=== PATIENT | female | born 1975 | race Caucasian/White ===

== ENCOUNTER → 2016-03-25 | Outpatient (CLI) | payer BC ==
--- NOTE | 2016-03-26 10:57 | MM ---
Reason for exam: screening (asymptomatic). Last mammogram was performed 1 year and 10 months ago. History: Patient had first child at age 30. Physical Findings: A clinical breast exam by your physician is recommended on an annual basis and results should be correlated with mammographic findings. MG Screening Mammo w CAD Bilateral CC and MLO view(s) were taken. Prior study comparison: June 02, 2014, bilateral MG screening mammo w CAD. The breast tissue is heterogeneously dense. This may lower the sensitivity of mammography. No significant changes when compared with prior studies. ASSESSMENT: Negative, BI-RAD 1 RECOMMENDATION: Routine screening mammogram of both breasts in 1 year.
== END | disposition home or self-care (01) ==
LOC: RADMAMWWP 12:07
PROVIDERS: ATTEND Family Medicine
DX: Z12.31 Encounter for screening mammogram for malignant neoplasm of breast (principal)

== ENCOUNTER → 2016-03-27 | Outpatient (CLI) | payer BC ==
--- NOTE | 2016-03-27 10:27 | CT ---
EXAMINATION TYPE: CT chest wo/w con DATE OF EXAM: 03/27/2016 9:33 AM COMPARISON: NONE HISTORY: Severe Asthma, toxoplasma chorioretinitis CT DLP: 503.2 mGycm, Automated exposure control for dose reduction was used. CONTRAST: Performed injected with 0 mL of Omnipaque 300. TECHNIQUE: Axial images were obtained at 5 mm thick sections. Reconstructed images are reviewed on [employer] computer in the coronal plane. FINDINGS: Portion of the thyroid visualized is normal. No suspicious lung nodules or focal infiltrates are present. There is a punctate density within the a nterior left midlung measuring 0.3 cm. Series 4 image 17 No enlarged mediastinal or hilar adenopathy is evident. The ascending aorta diameter at the level o f the main pulmonary artery is 3.2 cm. The main pulmonary artery diameter at the bifurcation is 2.[address] sections are obtained through the upper abdomen. Abdomen is essentially unremarkable. IMPRESSIONS: 1. No acute process evident. 2. Punctate density left midlung. Confirmation of Stability over 2 years is recommended. Follow-up est CT in 6 months is recommended. Findings can be compatible with histoplasmosis.
== END | disposition home or self-care (01) ==
LOC: RADCTMAIN 08:38
PROVIDERS: ATTEND Ophthalmology
DX: J98.4 Other disorders of lung (principal); R06.02 Shortness of breath
CPT/HCPCS: 71270; Q9967

== ENCOUNTER → 2017-06-09 | Outpatient (CLI) | payer BC ==
--- NOTE | 2017-06-09 13:41 | CT ---
EXAMINATION TYPE: CT ankle RT wo con DATE OF EXAM: 06/09/2017 COMPARISON: NONE HISTORY: Right foot and ankle pain CT DLP: 292 mGycm Axial, sagittal and coronal images are submitted. 3-D image rendering performed by the technologist. FINDINGS: There is a comminuted intra-articular fracture of the posterior aspect of the distal tibia extending to the medial margin. There is involvement of the medial malleolus with a avulsion fracture. Remaining osseous structures intact. There is extensive soft tissue edema. IMPRESSION: 1. Comminuted intra-articular fracture distal tibia with avulsion fracture of the medial malleolus.
== END | disposition home or self-care (01) ==
LOC: RADCTMAIN 12:49
PROVIDERS: ATTEND Orthopaedic Surgery
DX: S82.51XA Displaced fracture of medial malleolus of right tibia, initial encounter for closed fracture (principal)

== ENCOUNTER 2017-11-24 16:54 | Inpatient (IN) | payer BC ==
[2017-11-24] MEDS ORDERED: SODIUM CHLORIDE 0.9% 1,000 ML IV STA (17:31)
[2017-11-24] MEDS ORDERED: IPRATROPIUM-ALBUTEROL 3 ML NEB INHALATION STA (17:34)
--- NOTE | 2017-11-24 17:38 | ED ---
SOB HPI - General Chief Complaint: Shortness of Breath Stated Complaint: Sob Time Seen by Provider: 11/24/17 17:23 Source: patient Mode of arrival: ambulatory Limitations: no limitations - History of Present Illness Initial Comments: 42-year-old female patient presents to the emergency department today for evaluation of shortness of breath and wheezing. Patient states she is also having chest pain with this that does radiate through to her back. Patient states that symptoms started at the beginning of November and has been getting worse. States she has been doing her breathing treatments taking her medication as directed and is not helping. Patient states she did see her primary care physician this morning and was given injections of steroids and has not helped. Patient states that her breathing is getting worse. Patient states she does have a history of asthma and histoplasmosis. Patient states she has had hot and cold flashes but denies any documented temperatures. Patient has not had any nausea or vomiting. Denies any dizziness or weakness. Patient denies any recent rash, abdominal pain, diarrhea, constipation, back pain, numbness, tingling, hematuria, dysuria, urinary urgency, urinary frequency , headache, visual changes, or any other complaints. - Related Data Allergies Allergy/AdvReac Type Severity Reaction Status Date / Time theophylline [From Rob-Dur] Allergy Unknown Verified 11/24/17 17:14 Review of Systems ROS Statement: Those systems with pertinent positive or pertinent negative responses have been documented in the HPI. ROS Other: All systems not noted in ROS Statement are negative. Past Medical History Past Medical History: Asthma Additional Past Medical History / Comment(s): histoplasmosis, pituitary adenoma , ocular histoplasmosis History of Any Multi-Drug Resistant Organisms: None Reported Past Surgical History: No Surgical Hx Reported Past Psychological History: Anxiety, Depression Smoking Status: Never smoker Past Alcohol Use History: Occasional Past Drug Use History: None Reported General Exam Limitations: no limitations General appearance: alert, in no apparent distress, other (This is a well- developed, well-nourished adult female patient in mild respiratory distress. Vital signs upon presentation are temperature 99.0F, pulse 84, respirations 28 , pressure 129/72, pulse ox 92% on room air.) Eye exam: Present: normal appearance, PERRL, EOMI. Absent: scleral icterus, conjunctival injection, periorbital swelling ENT exam: Present: normal exam, normal oropharynx, mucous membranes moist Respiratory exam: Present: respiratory distress (Mild), wheezes (Diffuse inspiratory and expiratory wheezing throughout all posterior lung tenorio.). Absent: normal lung sounds bilaterally, rales, rhonchi, stridor Cardiovascular Exam: Present: regular rate, normal rhythm, normal heart sounds. Absent: systolic murmur, diastolic murmur, rubs, gallop, clicks GI/Abdominal exam: Present: soft, normal bowel sounds. Absent: distended, tenderness, guarding, rebound, rigid Neurological exam: Present: alert, oriented X3, CN II-XII intact Psychiatric exam: Present: normal affect, normal mood Skin exam: Present: warm, dry, intact, normal color. Absent: rash Course Vital Signs 11/24/17 11/24/17 11/24/17 17:14 18:30 18:40 Temperature 99 F Pulse Rate 84 76 78 Respiratory 28 H 18 16 Rate Blood Pressure 129/72 O2 Sat by Pulse 92 L Oximetry 11/24/17 11/24/17 11/24/17 18:58 19:04 19:17 Temperature Pulse Rate 73 80 89 Respiratory 16 Rate Blood Pressure 148/74 O2 Sat by Pulse 100 Oximetry Medical Decision Making - Medical Decision Making 42-year-old female patient presented to the emergency department today for evaluation of shortness of breath and wheezing. Patient states his been going on for the last 10 days. Physical examination did reveal inspiratory and expiratory wheezing to all posterior lung tenorio. Patient is tachypneic and does appear to be in mild respiratory distress. Vital signs initially did reveal hypoxia 92% on room air. CT of the chest was performed to rule out pulmonary embolism and was negative for any acute findings. Patient did receive DuoNeb breathing treatment and then an additional albuterol treatment here in the department, patient still reports shortness of breath. Patient was seen at her primary care office this morning was given an injection of steroids and antibiotics which did not help either. Patient has been doing breathing treatments at home and has had 2 prior to coming in. Patient symptoms are consistent with status asthmaticus. Patient will be admitted for breathing treatments and IV steroids. Patient is aware of plan and agrees. - Lab Data Result diagrams: 11/24/17 17:27 11/24/17 17:27 Lab Results 11/24/17 11/24/17 11/24/17 Range/Units 17:27 17:27 17:27 WBC 9.6 (3.8-10.6) k/uL RBC 4.78 (3.80-5.40) m/uL Hgb 14.1 (11.4-16.0) gm/dL Hct 44.1 (34.0-46.0) % MCV 92.3 (80.0-100.0) fL MCH 29.6 (25.0-35.0) pg MCHC 32.0 (31.0-37.0) g/dL RDW 13.9 (11.5-15.5) % Plt Count 326 (150-450) k/uL Neutrophils % 64 % Lymphocytes % 21 % Monocytes % 5 % Eosinophils % 7 % Basophils % 1 % Neutrophils # 6.1 (1.3-7.7) k/uL Lymphocytes # 2.0 (1.0-4.8) k/uL Monocytes # 0.5 (0-1.0) k/uL Eosinophils # 0.7 (0-0.7) k/uL Basophils # 0.1 (0-0.2) k/uL PT (9.0-12.0) sec INR (<1.2) APTT (22.0-30.0) sec Sodium 141 (137-145) mmol/L Potassium 4.1 (3.5-5.1) mmol/L Chloride 107 (98-107) mmol/L Carbon Dioxide 24 (22-30) mmol/L Anion Gap 10 mmol/L BUN 12 (7-17) mg/dL Creatinine 0.48 L (0.52-1.04) mg/dL Est GFR (CKD-EPI)AfAm >90 (>60 ml/min/1.73 sqM) Est GFR (CKD-EPI)NonAf >90 (>60 ml/min/1.73 sqM) Glucose 115 H (74-99) mg/dL Plasma Lactic Acid Linus (0.7-2.0) mmol/L Calcium 9.4 (8.4-10.2) mg/dL Total Bilirubin 0.6 (0.2-1.3) mg/dL AST 21 (14-36) U/L ALT 24 (9-52) U/L Alkaline Phosphatase 91 (38-126) U/L Total Creatine Kinase 92 (30-135) U/L CK-MB (CK-2) 1.3 (0.0-2.4) ng/mL CK-MB (CK-2) Rel Index 1.4 Troponin I <0.012 (0.000-0.034) ng/mL Total Protein 7.5 (6.3-8.2) g/dL Albumin 4.4 (3.5-5.0) g/dL 11/24/17 11/24/17 Range/Units 17:27 17:27 WBC (3.8-10.6) k/uL RBC (3.80-5.40) m/uL Hgb (11.4-16.0) gm/dL Hct (34.0-46.0) % MCV (80.0-100.0) fL MCH (25.0-35.0) pg MCHC (31.0-37.0) g/dL RDW (11.5-15.5) % Plt Count (150-450) k/uL Neutrophils % % Lymphocytes % % Monocytes % % Eosinophils % % Basophils % % Neutrophils # (1.3-7.7) k/uL Lymphocytes # (1.0-4.8) k/uL Monocytes # (0-1.0) k/uL Eosinophils # (0-0.7) k/uL Basophils # (0-0.2) k/uL PT 10.3 (9.0-12.0) sec INR 1.1 (<1.2) APTT 26.5 (22.0-30.0) sec Sodium (137-145) mmol/L Potassium (3.5-5.1) mmol/L Chloride (98-107) mmol/L Carbon Dioxide (22-30) mmol/L Anion Gap mmol/L BUN (7-17) mg/dL Creatinine (0.52-1.04) mg/dL Est GFR (CKD-EPI)AfAm (>60 ml/min/1.73 sqM) Est GFR (CKD-EPI)NonAf (>60 ml/min/1.73 sqM) Glucose (74-99) mg/dL Plasma Lactic Acid Linus 1.1 (0.7-2.0) mmol/L Calcium (8.4-10.2) mg/dL Total Bilirubin (0.2-1.3) mg/dL AST (14-36) U/L ALT (9-52) U/L Alkaline Phosphatase (38-126) U/L Total Creatine Kinase (30-135) U/L CK-MB (CK-2) (0.0-2.4) ng/mL CK-MB (CK-2) Rel Index Troponin I (0.000-0.034) ng/mL Total Protein (6.3-8.2) g/dL Albumin (3.5-5.0) g/dL - EKG Data -: EKG Interpreted by Me EKG Comments: EKG obtained at 1756 shows normal sinus rhythm with a ventricular rate of 75, MO interval 114, QRS duration 86, QT 384, QTC 428. No evidence of ST elevation or depression per - Radiology Data Radiology results: report reviewed, image reviewed CT angios chest was performed. The lungs are clear of infiltrate. There is no evidence of pleural effusion or pneumothorax. There is no mediastinal adenopathy. Thoracic aorta appears intact. There is normal contrast opacification of the pulmonary arteries. There are no filling defects. There is some spurring of the thoracic spine. Impression by Dr. Mullen shows negative exam. No evidence of pulmonary embolism. Disposition Clinical Impression: Status asthmaticus Disposition: ADMITTED IP TO THIS HOSP Condition: Serious Referrals: Thee Rodarte MD [Primary Care Provider] - 1-2 days Decision to Admit Reason: Admit from EC Decision Date: 11/24/17 Decision Time: 19:55
[2017-11-24 17:47] LABS: Basophils # (A) 0.1 k/uL (0-0.2); Basophils % (A) 1 %; Eosinophils # (A) 0.7 k/uL (0-0.7); Eosinophils % (A) 7 %; HCT 44.1 % (34.0-46.0); HGB 14.1 gm/dL (11.4-16.0); Lymphocytes % (A) 21 %; MCH 29.6 pg (25.0-35.0); MCV 92.3 fL (80.0-100.0); Mean Platelet Volume 6.3; Monocytes # (A) 0.5 k/uL (0-1.0); Monocytes % (A) 5 %; Neutrophils # (A) 6.1 k/uL (1.3-7.7); Neutrophils % (A) 64 %; Platelet Count 326 k/uL (150-450); RBC 4.78 m/uL (3.80-5.40); RDW 13.9 % (11.5-15.5); WBC 9.6 k/uL (3.8-10.6)
[2017-11-24 17:51] LABS: INR 1.1 (<1.2); Partial Thromboplastin Time 26.5 sec (22.0-30.0); Prothrombin Time 10.3 sec (9.0-12.0)
[2017-11-24 17:56] LABS: ALT 24 U/L (9-52); AST 21 U/L (14-36); Albumin 4.4 g/dL (3.5-5.0); Alkaline Phosphatase 91 U/L (38-126); Anion Gap 10 mmol/L; Blood Urea Nitrogen 12 mg/dL (7-17); Calcium 9.4 mg/dL (8.4-10.2); Carbon Dioxide 24 mmol/L (22-30); Chloride 107 mmol/L (98-107); Glucose 115 mg/dL (74-99); Potassium 4.1 mmol/L (3.5-5.1); Sodium 141 mmol/L (137-145); Total Bilirubin 0.6 mg/dL (0.2-1.3); Total Protein 7.5 g/dL (6.3-8.2)
[2017-11-24 18:10] LABS: Creatine Kinase 92 U/L (30-135)
[2017-11-24 18:23] LABS: Creatine Kinase MB 1.3 ng/mL (0.0-2.4); Troponin I <0.012 ng/mL (0.000-0.034)
[2017-11-24] MEDS ORDERED: ALBUTEROL NEBULIZED (CONC) 5 MG, SODIUM CHLORIDE 0.9% NEBULIZ 3 ML INHALATION STA ×2 (18:47)
[2017-11-24] MEDS ORDERED: DEXAMETHASONE SOD PHOSPHATE 10 MG/ML 1 ML VIAL IV STA (18:48)
[2017-11-24] MEDS ORDERED: MAGNESIUM SULFATE-D5W PMX 1 GM in DEXTROSE/WATER 1 100ML.BAG IVPB ONE (18:48)
--- NOTE | 2017-11-24 19:19 | CT ---
EXAMINATION TYPE: CT angio chest DATE OF EXAM: 11/24/2017 6:28 PM COMPARISON: HISTORY: Shortness of breath. CT DLP: 508 mGycm Automated exposure control for dose reduction was used. CONTRAST: CTA scan of the thorax is performed with IV Contrast, patient injected with 72ml mL of Isovue 370, pu lmonary embolism protocol. There are 3-D post processed images.. FINDINGS: The lungs are clear of infiltrate. There is no evidence of pleural effusion or pneumothorax. There is no mediastinal adenopathy. Thoracic aorta appears intact. There is normal contrast opacification of the pulmonary arteries. There are no filling defects. There is some spurring in the thoracic spine. IMPRESSION: NEGATIVE EXAM. NO EVIDENCE OF PULMONARY EMBOLISM.
[2017-11-24] MEDS ORDERED: NALOXONE 0.4 MG/ML 1 ML VIAL IV PRN (19:47)
[2017-11-24] MEDS ORDERED: IPRATROPIUM-ALBUTEROL 3 ML NEB INHALATION PRN (19:50)
[2017-11-24] MEDS ORDERED: IPRATROPIUM-ALBUTEROL 3 ML NEB INHALATION SCH (20:00)
[2017-11-24 21:08] VITALS: BMI 29.6
[2017-11-24] MEDS ORDERED: ALBUTEROL INHALER 60 PUFF/8 GM INHALER INHALATION PRN (21:46)
[2017-11-24] MEDS ORDERED: ALBUTEROL NEBULIZED 2.5 MG/3 ML INHALATION PRN ×2 (23:28→23:29)
[2017-11-25] MEDS: methylPREDNISolone SOD SUCCI 125 MG/2 ML VIAL IV SCH ×4 (01:02→17:36)
[2017-11-25] MEDS: SODIUM CHLORIDE 0.9% 1,000 ML IV SCH ×2 (02:01→20:40)
[2017-11-25] MEDS: ALBUTEROL NEBULIZED 2.5 MG/3 ML INHALATION PRN ×3 (04:05→16:19)
[2017-11-25] MEDS: SYMBICORT 160-4.5 MCG INHALER INHALATION SCH (07:41)
[2017-11-25 09:22] LABS: Basophils % (A) 0 %; Eosinophils # (A) 0.1 k/uL (0-0.7); Eosinophils % (A) 1 %; HCT 44.4 % (34.0-46.0); Lymphocytes # (A) 0.6 k/uL (1.0-4.8); Lymphocytes % (A) 6 %; MCHC 31.5 g/dL (31.0-37.0); MCV 95.1 fL (80.0-100.0); Mean Platelet Volume 6.5; Monocytes # (A) 0.1 k/uL (0-1.0); Monocytes % (A) 1 %; Neutrophils # (A) 9.4 k/uL (1.3-7.7); Neutrophils % (A) 93 %; Platelet Count 295 k/uL (150-450); RBC 4.67 m/uL (3.80-5.40); RDW 13.9 % (11.5-15.5); WBC 10.1 k/uL (3.8-10.6)
[2017-11-25 10:10] LABS: ALT 23 U/L (9-52); AST 19 U/L (14-36); Albumin 4.4 g/dL (3.5-5.0); Alkaline Phosphatase 89 U/L (38-126); Anion Gap 11 mmol/L; Blood Urea Nitrogen 15 mg/dL (7-17); Calcium 9.3 mg/dL (8.4-10.2); Carbon Dioxide 22 mmol/L (22-30); Chloride 106 mmol/L (98-107); Glucose 190 mg/dL (74-99); Potassium 4.7 mmol/L (3.5-5.1); Sodium 139 mmol/L (137-145); Total Bilirubin 0.5 mg/dL (0.2-1.3); Total Protein 7.4 g/dL (6.3-8.2)
[2017-11-25] MEDS: CITALOPRAM HYDROBROMIDE 20 MG TAB PO SCH (13:31)
[2017-11-25] MEDS: Dextroamphetamine/Amphetamine [Adderall Xr] PO SCH (13:32)
--- NOTE | 2017-11-25 13:53 | P.CNPUL ---
History of Present Illness Consult date: 11/25/17 Reason for consult: dyspnea, cough Chief complaint: Chest tightness shortness of breath worsening for over a week History of present illness: 42-year-old female who was seen evaluated examined on third floor this patient presented into the emergency department with over a week history of increased cuff congestion and shortness of breath she has becoming more short of breath so that her nebulizer treatment as well as Symbicort was not working with those problem she was seen evaluated examined in the emergency room has been admitted into the hospital she does have cough congestion able to produce some sputum which is thick tenacious and dark yellow in color patient has a history of chronic persistent severe asthma since 3 years old however she denies any recent admission into the hospital for acute asthma exacerbation of complication of asthma. She has a multiple admission however back in , she used to see an labor relations specialist has been on shots, with a last received more than a year ago. She denies any recent intubation and or hospital admission for asthma exacerbation in last several years. 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, patient even though was born in [place] but raised in [facility], she has a multiple chickens around house along with 2 rabbits a dog Review of Systems All systems: negative Past Medical History Past Medical History: Asthma Additional Past Medical History / Comment(s): Histoplasmosis, pituitary adenoma , ocular histoplasmosis, right ankle fracture (no surgery), chronic back pain. Reports being "almost " r/t asthma in (vented and hospitalized). History of Any Multi-Drug Resistant Organisms: None Reported Past Surgical History: No Surgical Hx Reported Past Psychological History: ADD/ADHD, Anxiety, Depression Smoking Status: Never smoker Past Alcohol Use History: Occasional Additional Past Alcohol Use History / Comment(s): Social drinker. Past Drug Use History: None Reported Medications and Allergies Home Medications Medication Instructions Recorded Confirmed Type Albuterol Inhaler [Ventolin Hfa 1 - 2 puff INHALATION RT-Q6H PRN 11/24/17 History Inhaler] Budesonide/Formoterol Fumarate 2 puff INHALATION RT-DAILY 11/24/17 11/24/17 History [Symbicort 160-4.5 Mcg Inhaler] Cetirizine HCl [Zyrtec] 10 mg PO DAILY 11/24/17 11/24/17 History Citalopram Hydrobromide [CeleXA] 20 mg PO DAILY 11/24/17 11/24/17 History Dextroamphetamine/Amphetamine 20 mg PO QAM 11/24/17 11/24/17 History [Adderall Xr] Allergies Allergy/AdvReac Type Severity Reaction Status Date / Time broccoli Allergy Anaphylaxis Verified 11/24/17 21:08 legumes Allergy Unknown Verified 11/24/17 23:22 rice Allergy Anaphylaxis Verified 11/24/17 21:08 soy Allergy Anaphylaxis Verified 11/24/17 21:08 theophylline [From Rob-Dur] Allergy Unknown Verified 11/24/17 21:08 PEPPER CORN Allergy Anaphylaxis Uncoded 11/24/17 21:08 Physical Exam Vitals: Vital Signs Temp Pulse Pulse Resp BP BP Pulse Ox 11/25/17 11:29 92 11/25/17 11:18 88 11/25/17 07:00 97.7 F 71 18 141/69 98 11/25/17 04:15 84 11/25/17 04:05 92 11/24/17 23:57 88 11/24/17 23:45 88 11/24/17 23:00 98.4 F 78 18 133/59 98 11/24/17 20:25 77 16 138/75 98 11/24/17 19:17 89 11/24/17 19:04 80 11/24/17 18:58 73 16 148/74 100 11/24/17 18:40 78 16 11/24/17 18:30 76 18 11/24/17 17:14 99 F 84 28 H 129/72 92 L Intake and Output 11/24/17 11/25/17 11/25/17 22:59 06:59 14:59 Other: Voiding Method Toilet # Voids 1 1 Weight 73.482 kg - Constitutional General appearance: average body habitus, cooperative, disheveled, mild distress , no acute distress, thin - EENT Eyes: EOMI, PERRLA, normal appearance ENT: normal oropharynx Ears: bilateral: normal - Neck Neck: normal ROM Carotids: bilateral: upstroke normal, bruit absent Thyroid: bilateral: normal size - Respiratory Respiratory: bilateral: rhonchi, wheezing, prolonged expiration, negative: CTA, diminished, dullness, rales - Cardiovascular Heart sounds: normal: S1, S2 - Gastrointestinal General gastrointestinal: normal bowel sounds, soft - Neurologic Neurologic: CNII-XII intact - Musculoskeletal Musculoskeletal: gait normal, generalized weakness, strength equal bilaterally - Psychiatric Psychiatric: A&O x's 3, appropriate affect, intact judgment & insight Results - Laboratory Findings CBC and BMP: 11/25/17 09:03 11/25/17 09:03 PT/INR, D-dimer PT 10.3 sec (9.0-12.0) 11/24/17 17:27 INR 1.1 (<1.2) 11/24/17 17:27 Abnormal lab findings: Abnormal Labs 11/24/17 11/25/17 11/25/17 17:27 09:03 09:03 Neutrophils # 9.4 H Lymphocytes # 0.6 L Creatinine 0.48 L 0.48 L Glucose 115 H 190 H - Diagnostic Findings CT scan - chest: report reviewed, image reviewed (No evidence of pulmonary embolism no pneumonia or infiltrate seen, no masslike lesion identified) Assessment and Plan Assessment: Acute asthma exacerbation History of chronic persistent severe asthma History of histoplasma exposure History of intraocular histoplasmosis ADHD Mood disorder depression Plan: Continue bronchodilator in the form of albuterol via nebulizer IV steroids Oral antibiotics with doxycycline 100 mg by mouth 2 times a day Labs for ALLERGIC asthma Deep breathing exercise incentive spirometry Further evaluation of lung and outpatient basis Time with Patient: Greater than 30
[2017-11-25] MEDS: DOXYCYCLINE 50 MG CAP PO SCH (15:21)
[2017-11-25] MEDS ORDERED: ONDANSETRON 4 MG/2 ML VIAL IVP PRN (16:39)
[2017-11-25] MEDS ORDERED: MELATONIN 3 MG TABLET PO PRN (16:39)
[2017-11-25] MEDS ORDERED: CALCIUM CARBONATE 500 MG CHEWABLE PO PRN (16:39)
[2017-11-25] MEDS ORDERED: MAGNESIUM HYDROXIDE 2,400 MG/10 ML CUP PO PRN (16:39)
[2017-11-25] MEDS ORDERED: LACTULOSE 20 GM/30 ML CUP PO PRN (16:39)
[2017-11-25] MEDS: ENOXAPARIN 40 MG/0.4 ML SYRINGE SQ SCH (17:36)
--- NOTE | 2017-11-25 17:54 | HP ---
HISTORY AND PHYSICAL DATE OF ADMISSION: November 24, 2017. DATE OF SERVICE: November 25, 2017. PRESENT COMPLAINT: Short of breath. HISTORY OF PRESENTING COMPLAINT: This is a pleasant 42-year-old patient who follows with Dr. Rodarte. She was diagnosed with asthma at age of 3. The patient follows with Dr. Rodarte. Also, she was told she has histoplasmosis. She thinks was diagnosed by CT scan and also had ocular histoplasmosis. Does follow with Dr. Morales. The patient's asthma has been reasonably controlled. For 2 weeks patient has been having increasing more short of breath, wheezing, occasional bouts of phlegm and gets small specks of sputum. Does feel hot and cold and quite a bit short of breath at rest. Admitted for the same. Started on Solu-Medrol and breathing treatment with get some relief. Additionally, patient's chronic stable conditions include anxiety, depression, ADD. REVIEW OF SYSTEMS: CONSTITUTIONAL: Tired. HEENT none. RESPIRATORY as above. CARDIOVASCULAR none. GASTROINTESTINAL none. GENITOURINARY: None. MUSCULOSKELETAL: Chronic low back pain. DERMATOLOGICAL, HEMATOLOGIC, LYMPHATIC: none. PSYCHIATRY: Anxiety and depression controlled. NEUROLOGICAL none. PAST MEDICAL HISTORY: Asthma, ocular histoplasmosis, pituitary adenoma, right ankle fracture, chronic low back pain, was ventilated in . PAST SURGICAL HISTORY: None. PSYCH HISTORY: Anxiety and depression, ADD. SOCIAL HISTORY: Does not smoke. Alcohol socially. . Two children. FAMILY HISTORY: Reviewed, noncontributory to presentation. HOME MEDICATIONS: 1. Adderall XR 20 mg a day. 2. Celexa 20 mg a day. 3. Zyrtec 10 mg a day. 4. Symbicort 160/4.5, 2 puffs daily. 5. Ventolin HFA 1-2 puffs q.6h p.r.n. ALLERGIES: BROCCOLI, LEGUMES, RICE, SOY, THEOPHYLLINE, FIBERCON. PHYSICAL EXAMINATION: VITAL SIGNS: Vital signs on presentation, temperature 99, pulse 84, respiration 20, blood pressure 120/72, pulse ox 92 percent on room air. GENERAL APPEARANCE: Average build, sitting up, short of breath at rest. EYES: Pupils equal. Conjunctivae normal. HEENT: External appearance of nose and ears normal. Oral cavity normal. NECK JVD not raised. Mass not palpable. RESPIRATORY effort increased. Short of breath at rest. Accessory muscles are working. Not able to speak in full sentences. LUNGS: Poor air entry. Prolonged expiration and wheezing. CARDIOVASCULAR: First and second sounds normal. No edema. ABDOMEN: Soft, nontender. Liver and spleen not palpable. LYMPHATICS: No lymph nodes palpable in the neck and axillae. PSYCHIATRY: Alert and oriented x3. Mood and affect normal. NEUROLOGICAL: Pupils equal. Cranial nerves grossly intact. Power and sensation grossly intact. INVESTIGATIONS: White count 9.6, hemoglobin 14.1, potassium 4.1, BUN 12, creatinine 0.48. Troponin negative. EKG tracing interpreted by me shows normal sinus rhythm. Chest CTA no evidence of pulmonary embolism. ASSESSMENT: 1. Acute exacerbation of moderate persistent asthma. 2. History of histoplasmosis with ocular histoplasmosis. 3. Anxiety/depression not otherwise specified. 4. Attention-deficit disorder. PLAN: Patient is started on IV Solu-Medrol. We will also add inhaled steroids. Home medications are resumed. We will put on Ventolin q.4 hours, Lovenox for DVT prophylaxis. Pulmonary was consulted. Care was discussed with the patient. Copy to Dr. Rodarte. MMMAINORL / IJN: [id number] /
[2017-11-25] MEDS: ALBUTEROL NEBULIZED 2.5 MG/3 ML INHALATION SCH (19:59)
[2017-11-25] MEDS: INSULIN ASPART 100 UNIT/ML 1 ML 10 ML VIAL SQ SCH (20:54)
[2017-11-25 21:06] LABS: Glucose,Whole Blood 160 mg/dL (75-99)
[2017-11-26] MEDS: methylPREDNISolone SOD SUCCI 125 MG/2 ML VIAL IV SCH ×5 (00:48→23:40)
[2017-11-26] MEDS: ALBUTEROL NEBULIZED 2.5 MG/3 ML INHALATION SCH ×6 (00:51→20:14)
[2017-11-26] MEDS: DOXYCYCLINE 50 MG CAP PO SCH (05:17)
[2017-11-26 07:40] LABS: Glucose,Whole Blood 145 mg/dL (75-99)
[2017-11-26] MEDS: ENOXAPARIN 40 MG/0.4 ML SYRINGE SQ SCH (08:11)
[2017-11-26] MEDS: Dextroamphetamine/Amphetamine [Adderall Xr] PO SCH (08:11)
[2017-11-26] MEDS: INSULIN ASPART 100 UNIT/ML 1 ML 10 ML VIAL SQ SCH ×4 (08:11→21:28)
[2017-11-26] MEDS: CITALOPRAM HYDROBROMIDE 20 MG TAB PO SCH (08:11)
[2017-11-26] MEDS: SYMBICORT 160-4.5 MCG INHALER INHALATION SCH (09:06)
[2017-11-26] MEDS: ALPRAZolam 0.25 MG TAB PO PRN (11:36)
[2017-11-26 11:53] LABS: Glucose,Whole Blood 263 mg/dL (75-99)
[2017-11-26 16:51] LABS: Glucose,Whole Blood 144 mg/dL (75-99)
[2017-11-26] MEDS: DOXYCYCLINE MONOHYDRATE 100 MG CAPSULE PO SCH (17:30)
[2017-11-26] MEDS ORDERED: SYMBICORT 160-4.5 MCG INHALER INHALATION SCH (20:30)
[2017-11-26 21:16] LABS: Glucose,Whole Blood 208 mg/dL (75-99)
[2017-11-26] MEDS: SODIUM CHLORIDE 0.9% 1,000 ML IV SCH (21:28)
--- NOTE | 2017-11-26 23:22 | PN ---
PROGRESS NOTE DATE OF SERVICE: 11/26/2017. PRESENTING COMPLAINT: Short of breath. INTERVAL HISTORY: This patient presented with severe asthma, still wheezing, a little cough, requiring every 4 hours breathing treatments and IV steroids. Family at the bedside. Did tolerate some diet. REVIEW OF SYSTEMS: Done for constitutional, cardiovascular, GI, pulmonary; relevant findings as above. CURRENT MEDICATIONS: Reviewed that include: 1. Ventolin q.4. 2. Symbicort. 3. IV Solu-Medrol. EXAMINATION: Temperature 97.4, pulse 96, respirations 18, blood pressure 136/90, pulse ox 97% on 3L. GENERAL APPEARANCE: Sitting up, short of breath. EYES: Pupils equal. Conjunctivae normal. HEENT: External nose and ears normal. Oral cavity normal. NECK: JVD not raised. Mass not palpable. RESPIRATORY: Effort increased. LUNGS: Decreased breath sounds. Prolonged expiration, wheezing. CARDIOVASCULAR: First and second sounds normal. No edema. ABDOMEN: Soft, nontender. Liver and spleen not palpable. PSYCHIATRY: Alert and oriented x3. Mood and affect normal. INVESTIGATIONS: Accu-Cheks 263, 144, 208. ASSESSMENT: 1. Acute exacerbation of moderate persistent asthma, slow to respond. 2. History of histoplasmosis with ocular histoplasmosis. 3. Anxiety, depression, not otherwise specified. 4. Attention deficit disorder. 5. Hyperglycemia secondary to steroids. PLAN: Continue with aggressive bronchodilation every 4 hours. IV steroids to continue. Care was discussed with the patient. The patient is also on doxycycline. Will also add Perforomist and inhaled steroids in form of nebulized Pulmicort. Hold off the Symbicort for now. Care was discussed with the patient and the family at the bedside. Follow. MMODL / IJN: [id number] /
[2017-11-27] MEDS: BUDESONIDE 1 MG/2 ML NEBU INHALATION SCH ×3 (00:17→21:13)
[2017-11-27] MEDS: FORMOTEROL FUMARATE 20 MCG/2 ML NEBU INHALATION SCH ×4 (00:17→21:13)
[2017-11-27] MEDS: ALBUTEROL NEBULIZED 2.5 MG/3 ML INHALATION SCH ×7 (00:23→23:58)
[2017-11-27] MEDS: ALPRAZolam 0.25 MG TAB PO PRN (00:44)
[2017-11-27] MEDS: DOXYCYCLINE MONOHYDRATE 100 MG CAPSULE PO SCH ×2 (06:03→18:51)
[2017-11-27] MEDS: methylPREDNISolone SOD SUCCI 125 MG/2 ML VIAL IV SCH ×3 (06:03→19:11)
[2017-11-27 07:30] LABS: Glucose,Whole Blood 125 mg/dL (75-99)
[2017-11-27] MEDS: INSULIN ASPART 100 UNIT/ML 1 ML 10 ML VIAL SQ SCH ×4 (07:32→21:46)
[2017-11-27] MEDS: Dextroamphetamine/Amphetamine [Adderall Xr] PO SCH (07:33)
[2017-11-27] MEDS: ENOXAPARIN 40 MG/0.4 ML SYRINGE SQ SCH (08:49)
[2017-11-27] MEDS: CITALOPRAM HYDROBROMIDE 20 MG TAB PO SCH (08:49)
--- NOTE | 2017-11-27 10:09 | P.PN ---
Subjective Progress Note Date: 11/26/17 (Late entry note) Principal diagnosis: Acute asthma exacerbation, tracheobronchitis, history of ophthalmic histoplasmosis, chronic persistent severe asthma 11/26/2017, patient seen eval examined during the rounds clinically doing slightly better still have significant wheezing cuff congestion but severity slightly improved compared to prior exam, I reviewed the computed tomography scan finding with the patient at length no evidence of infiltrate and/or pneumonia were seen 42-year-old female who was seen evaluated examined on third floor this patient presented into the emergency department with over a week history of increased cuff congestion and shortness of breath she has becoming more short of breath so that her nebulizer treatment as well as Symbicort was not working with those problem she was seen evaluated examined in the emergency room has been admitted into the hospital she does have cough congestion able to produce some sputum which is thick tenacious and dark yellow in color patient has a history of chronic persistent severe asthma since 3 years old however she denies any recent admission into the hospital for acute asthma exacerbation of complication of asthma. She has a multiple admission however back in , she used to see an union organizer has been on shots, with a last received more than a year ago. She denies any recent intubation and or hospital admission for asthma exacerbation in last several years. 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, patient even though was born in [place] but raised in [facility] area, she has a multiple chickens around house along with 2 rabbits a dog Objective - Vital Signs Vital signs: Vital Signs Temp 97.5 F L 11/27/17 07:00 Pulse 84 11/27/17 09:48 Resp 16 11/27/17 07:00 BP 118/73 11/27/17 07:00 Pulse Ox 98 11/27/17 07:00 Intake & Output 11/26/17 11/27/17 11/27/17 18:59 06:59 18:59 Intake Total 100 Balance 100 Intake: Oral 100 Other: Voiding Method Toilet Toilet # Voids 1 1 - Exam Constitutional General appearance: average body habitus, cooperative, disheveled, mild distress , no acute distress, thin - EENT Eyes: EOMI, PERRLA, normal appearance ENT: normal oropharynx Ears: bilateral: normal - Neck Neck: normal ROM Carotids: bilateral: upstroke normal, bruit absent Thyroid: bilateral: normal size - Respiratory Respiratory: bilateral: rhonchi, wheezing, prolonged expiration, negative: CTA, diminished, dullness, rales - Cardiovascular Heart sounds: normal: S1, S2 - Gastrointestinal General gastrointestinal: normal bowel sounds, soft - Neurologic Neurologic: CNII-XII intact - Musculoskeletal Musculoskeletal: gait normal, generalized weakness, strength equal bilaterally - Psychiatric Psychiatric: A&O x's 3, appropriate affect, intact judgment & insight - Labs CBC & Chem 7: 11/25/17 09:03 11/25/17 09:03 Labs: Abnormal Lab Results - Last 24 Hours (Table) 11/26/17 11/26/17 11/26/17 Range/Units 11:41 16:48 21:04 POC Glucose (mg/dL) 263 H 144 H 208 H (75-99) mg/dL 11/27/17 Range/Units 07:26 POC Glucose (mg/dL) 125 H (75-99) mg/dL Microbiology - Last 24 Hours (Table) 11/24/17 17:27 Blood Culture - Preliminary Blood No Growth after 48 hours Assessment and Plan Assessment: Acute asthma exacerbation History of chronic persistent severe asthma History of histoplasma exposure History of intraocular histoplasmosis ADHD Mood disorder depression Plan: Continue bronchodilator in the form of albuterol via nebulizer IV steroids Oral antibiotics with doxycycline 100 mg by mouth 2 times a day Follow-up on Labs for ALLERGIC asthma Deep breathing exercise incentive spirometry Further evaluation of lung and outpatient basis Time with Patient: Greater than 30
--- NOTE | 2017-11-27 10:12 | P.PN ---
Subjective Progress Note Date: 11/27/17 Principal diagnosis: Acute asthma exacerbation, tracheobronchitis, history of ophthalmic histoplasmosis, chronic persistent severe asthma 11/27/2017, patient seen eval examined during the rounds, cough is mostly dry and nonproductive but severity has improved, she is a getting breathing treatments along with steroids does noted some improvement, but is still get short of breath on activity and exertion 11/26/2017, patient seen eval examined during the rounds clinically doing slightly better still have significant wheezing cuff congestion but severity slightly improved compared to prior exam, I reviewed the computed tomography scan finding with the patient at length no evidence of infiltrate and/or pneumonia were seen 42-year-old female who was seen evaluated examined on third floor this patient presented into the emergency department with over a week history of increased cuff congestion and shortness of breath she has becoming more short of breath so that her nebulizer treatment as well as Symbicort was not working with those problem she was seen evaluated examined in the emergency room has been admitted into the hospital she does have cough congestion able to produce some sputum which is thick tenacious and dark yellow in color patient has a history of chronic persistent severe asthma since 3 years old however she denies any recent admission into the hospital for acute asthma exacerbation of complication of asthma. She has a multiple admission however back in , she used to see an digital forensics examiner has been on shots, with a last received more than a year ago. She denies any recent intubation and or hospital admission for asthma exacerbation in last several years. 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, patient even though was born in [place] but raised in [facility] area, she has a multiple chickens around house along with 2 rabbits a dog Objective - Vital Signs Vital signs: Vital Signs Temp 97.5 F L 11/27/17 07:00 Pulse 84 11/27/17 09:48 Resp 16 11/27/17 07:00 BP 118/73 11/27/17 07:00 Pulse Ox 98 11/27/17 07:00 Intake & Output 11/26/17 11/27/17 11/27/17 18:59 06:59 18:59 Intake Total 100 Balance 100 Intake: Oral 100 Other: Voiding Method Toilet Toilet # Voids 1 1 - Exam Constitutional General appearance: average body habitus, cooperative, disheveled, mild distress , no acute distress, thin - EENT Eyes: EOMI, PERRLA, normal appearance ENT: normal oropharynx Ears: bilateral: normal - Neck Neck: normal ROM Carotids: bilateral: upstroke normal, bruit absent Thyroid: bilateral: normal size - Respiratory Respiratory: bilateral: rhonchi, wheezing, prolonged expiration, significantly improved compared to prior exam - Cardiovascular Heart sounds: normal: S1, S2 - Gastrointestinal General gastrointestinal: normal bowel sounds, soft - Neurologic Neurologic: CNII-XII intact - Musculoskeletal Musculoskeletal: gait normal, generalized weakness, strength equal bilaterally - Psychiatric Psychiatric: A&O x's 3, appropriate affect, intact judgment & insight - Labs CBC & Chem 7: 11/25/17 09:03 11/25/17 09:03 Labs: Abnormal Lab Results - Last 24 Hours (Table) 11/26/17 11/26/17 11/26/17 Range/Units 11:41 16:48 21:04 POC Glucose (mg/dL) 263 H 144 H 208 H (75-99) mg/dL 11/27/17 Range/Units 07:26 POC Glucose (mg/dL) 125 H (75-99) mg/dL Microbiology - Last 24 Hours (Table) 11/24/17 17:27 Blood Culture - Preliminary Blood No Growth after 48 hours Assessment and Plan Assessment: Acute asthma exacerbation History of chronic persistent severe asthma History of histoplasma exposure History of intraocular histoplasmosis ADHD Mood disorder depression Plan: Continue bronchodilator in the form of albuterol via nebulizer IV steroids Oral antibiotics with doxycycline 100 mg by mouth 2 times a day Follow-up on Labs for ALLERGIC asthma, still pending Deep breathing exercise incentive spirometry Further evaluation of lung and outpatient basis, if remains stable possible discharge in next 24 hour Time with Patient: Greater than 30
[2017-11-27 11:44] LABS: Glucose,Whole Blood 178 mg/dL (75-99)
[2017-11-27] MEDS: guaiFENesin-DM 100-10MG/5ML 10 ML CUP PO PRN (12:01)
[2017-11-27 16:55] LABS: Glucose,Whole Blood 262 mg/dL (75-99)
--- NOTE | 2017-11-27 19:53 | PN ---
PROGRESS NOTE DATE OF SERVICE: 11/27/2017 PRESENTING COMPLAINT: Short of breath. INTERVAL HISTORY: Patient presented with severe asthma, doing somewhat better. Able to get to the bathroom, although still gets short winded. Tolerating a diet. Coughing is better. Being followed by Pulmonary. REVIEW OF SYSTEMS: Done for constitutional, cardiovascular, GI, pulmonary; relevant findings as above. CURRENT MEDICATIONS: Reviewed that include Ventolin q.4h inhaled, Pulmicort, IV Solu-Medrol. EXAMINATION: Temperature 98.3, pulse 86, respirations 16, blood pressure 126/71, pulse ox 95% on 2L. GENERAL APPEARANCE: Sitting up, less short of breath. EYES: Pupils are equal. Conjunctivae normal. HEENT: External nose and ears normal. Oral cavity normal. NECK: JVD not raised. Mass not palpable. Respiratory effort increased. LUNGS: Slight decreased breath sounds. Improved air entry, less wheezing. CARDIOVASCULAR: First and seconds sounds normal, no edema. ABDOMEN: Soft, nontender. Liver and spleen not palpable. PSYCHIATRY: Alert and oriented x3. Mood and affect normal. INVESTIGATIONS: Accu-Cheks are noted. ASSESSMENT: 1. Acute exacerbation of moderate persistent asthma, improving. 2. History of histoplasmosis and ocular histoplasmosis. 3. Anxiety and depression, not otherwise specified. 4. Attention deficit disorder. 5. Hyperglycemia secondary to steroids. PLAN: Continue current medication and treatment plan. Cut back on IV steroids. Follow. MMODL / IJN: [id number] /
[2017-11-27 20:58] LABS: Glucose,Whole Blood 79 mg/dL (75-99)
[2017-11-27] MEDS: SODIUM CHLORIDE 0.9% 1,000 ML IV SCH (21:45)
[2017-11-28] MEDS: methylPREDNISolone SOD SUCCI 40 MG/ML 1 ML VIAL IV SCH ×4 (00:49→23:11)
[2017-11-28] MEDS: guaiFENesin-DM 100-10MG/5ML 10 ML CUP PO PRN ×3 (00:50→18:45)
[2017-11-28] MEDS: ALBUTEROL NEBULIZED 2.5 MG/3 ML INHALATION SCH ×5 (03:32→20:15)
[2017-11-28] MEDS: DOXYCYCLINE MONOHYDRATE 100 MG CAPSULE PO SCH ×2 (05:49→17:44)
[2017-11-28 07:15] LABS: Glucose,Whole Blood 115 mg/dL (75-99)
[2017-11-28] MEDS: BUDESONIDE 1 MG/2 ML NEBU INHALATION SCH ×2 (07:34→20:15)
[2017-11-28] MEDS: FORMOTEROL FUMARATE 20 MCG/2 ML NEBU INHALATION SCH ×2 (07:34→20:15)
[2017-11-28] MEDS: Dextroamphetamine/Amphetamine [Adderall Xr] PO SCH (08:02)
[2017-11-28] MEDS: CITALOPRAM HYDROBROMIDE 20 MG TAB PO SCH (08:08)
[2017-11-28] MEDS: ENOXAPARIN 40 MG/0.4 ML SYRINGE SQ SCH (08:08)
[2017-11-28] MEDS: INSULIN ASPART 100 UNIT/ML 1 ML 10 ML VIAL SQ SCH ×4 (08:09→21:19)
[2017-11-28] MEDS: ACETAMINOPHEN TAB 325 MG TAB PO PRN ×2 (08:11→17:44)
[2017-11-28 11:20] LABS: Glucose,Whole Blood 115 mg/dL (75-99)
[2017-11-28 17:08] LABS: Glucose,Whole Blood 123 mg/dL (75-99)
--- NOTE | 2017-11-28 17:27 | PN ---
PROGRESS NOTE DATE OF SERVICE: 11/28/2017 PRESENTING COMPLAINT: Short of breath. INTERVAL HISTORY: This is a patient who presented with severe asthma, is doing some improvement, but still wheezing, gets short-winded when she gets about. Tolerating some diet. Cough is improving. Not any sputum. No fever. No chills. REVIEW OF SYSTEMS: Done for constitutional, cardiovascular, GI, pulmonary; relevant findings as above. CURRENT MEDICATIONS: Reviewed that include: 1. IV Solu-Medrol 40 q.8h. 2. Albuterol 5 mg q.4. EXAMINATION: Temperature 98.6, pulse 90, respirations 18, blood pressure 130/79 pulse ox 95% on room air. GENERAL APPEARANCE: Sitting up, not in distress. EYES: Pupils equal. Conjunctivae normal. HEENT: External appearance of nose and ears normal. Oral cavity normal. NECK: JVD not raised. Mass not palpable. RESPIRATORY: Effort increased. LUNGS: Decreased breath sounds. Prolonged expiration, wheezing. CARDIOVASCULAR: First and second sounds normal. No edema. ABDOMEN: Soft, nontender. Liver, spleen not palpable. PSYCHIATRY: Alert and oriented x3. Mood and affect were normal. INVESTIGATIONS: Accu-Cheks noted. ASSESSMENT: 1. Acute exacerbation of moderate persistent asthma, slow to respond. 2. History of histoplasmosis and ocular histoplasmosis. 3. Anxiety, depression, not otherwise specified. 4. Attention deficit disorder. 5. Hyperglycemia secondary to steroids. PLAN: Discussed with Dr. Facundo Loomis, the city maintenance manager. I do not think the patient is ready right now to be discharged. We will continue the current treatment plan, including IV steroids, change the albuterol to every 6 hours and follow. MMODL / IJN: [id number] /
[2017-11-28 20:44] LABS: Glucose,Whole Blood 156 mg/dL (75-99)
[2017-11-28] MEDS: SODIUM CHLORIDE 0.9% 1,000 ML IV SCH (20:55)
--- NOTE | 2017-11-29 00:05 | P.PN ---
Subjective Progress Note Date: 11/28/17 Principal diagnosis: Acute asthma exacerbation, tracheobronchitis, history of ophthalmic histoplasmosis, chronic persistent severe asthma 11/27/2017, patient seen eval examined during the rounds, cough is mostly dry and nonproductive but severity has improved, she is a getting breathing treatments along with steroids does noted some improvement, but is still get short of breath on activity and exertion 11/26/2017, patient seen eval examined during the rounds clinically doing slightly better still have significant wheezing cuff congestion but severity slightly improved compared to prior exam, I reviewed the computed tomography scan finding with the patient at length no evidence of infiltrate and/or pneumonia were seen 42-year-old female who was seen evaluated examined on third floor this patient presented into the emergency department with over a week history of increased cuff congestion and shortness of breath she has becoming more short of breath so that her nebulizer treatment as well as Symbicort was not working with those problem she was seen evaluated examined in the emergency room has been admitted into the hospital she does have cough congestion able to produce some sputum which is thick tenacious and dark yellow in color patient has a history of chronic persistent severe asthma since 3 years old however she denies any recent admission into the hospital for acute asthma exacerbation of complication of asthma. She has a multiple admission however back in , she used to see an senior credit officer has been on shots, with a last received more than a year ago. She denies any recent intubation and or hospital admission for asthma exacerbation in last several years. 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, patient even though was born in [place] but raised in [facility] area, she has a multiple chickens around house along with 2 rabbits a dog Objective - Vital Signs Vital signs: Vital Signs Temp 97.0 F L 11/28/17 22:56 Pulse 90 11/28/17 22:56 Resp 18 11/28/17 22:56 BP 126/65 11/28/17 22:56 Pulse Ox 95 11/28/17 22:56 Intake & Output 11/28/17 11/28/17 11/29/17 06:59 18:59 06:59 Intake Total 300 Balance 300 Intake: Oral 300 Other: Voiding Method Toilet Toilet # Voids 1 3 2 # Bowel Movements 1 - Exam Constitutional General appearance: average body habitus, cooperative, disheveled, mild distress , no acute distress, thin - EENT Eyes: EOMI, PERRLA, normal appearance ENT: normal oropharynx Ears: bilateral: normal - Neck Neck: normal ROM Carotids: bilateral: upstroke normal, bruit absent Thyroid: bilateral: normal size - Respiratory Respiratory: bilateral: rhonchi, wheezing, prolonged expiration, significantly improved compared to prior exam - Cardiovascular Heart sounds: normal: S1, S2 - Gastrointestinal General gastrointestinal: normal bowel sounds, soft - Neurologic Neurologic: CNII-XII intact - Musculoskeletal Musculoskeletal: gait normal, generalized weakness, strength equal bilaterally - Psychiatric Psychiatric: A&O x's 3, appropriate affect, intact judgment & insight - Labs CBC & Chem 7: 11/25/17 09:03 11/25/17 09:03 Labs: Abnormal Lab Results - Last 24 Hours (Table) 11/28/17 11/28/17 11/28/17 Range/Units 07:12 11:18 17:07 POC Glucose (mg/dL) 115 H 115 H 123 H (75-99) mg/dL 11/28/17 Range/Units 20:34 POC Glucose (mg/dL) 156 H (75-99) mg/dL Microbiology - Last 24 Hours (Table) 11/24/17 17:27 Blood Culture - Preliminary Blood No Growth after 96 hours Assessment and Plan Assessment: Acute asthma exacerbation History of chronic persistent severe asthma History of histoplasma exposure History of intraocular histoplasmosis ADHD Mood disorder depression Plan: Continue bronchodilator in the form of albuterol via nebulizer IV steroids Oral antibiotics with doxycycline 100 mg by mouth 2 times a day Follow-up on Labs for ALLERGIC asthma, still pending Deep breathing exercise incentive spirometry Further evaluation of lung and outpatient basis, discussed with primary service given that patient is still very tight and symptomatic will continue current course of therapy and follow clinical course closely not ready for discharge
[2017-11-29] MEDS: guaiFENesin-DM 100-10MG/5ML 10 ML CUP PO PRN (02:42)
[2017-11-29] MEDS: DOXYCYCLINE MONOHYDRATE 100 MG CAPSULE PO SCH ×2 (04:45→17:57)
[2017-11-29 07:30] LABS: Glucose,Whole Blood 125 mg/dL (75-99)
[2017-11-29] MEDS: INSULIN ASPART 100 UNIT/ML 1 ML 10 ML VIAL SQ SCH ×3 (07:35→17:55)
[2017-11-29] MEDS: Dextroamphetamine/Amphetamine [Adderall Xr] PO SCH (07:43)
[2017-11-29] MEDS: ENOXAPARIN 40 MG/0.4 ML SYRINGE SQ SCH (07:46)
[2017-11-29] MEDS: CITALOPRAM HYDROBROMIDE 20 MG TAB PO SCH (07:46)
[2017-11-29] MEDS: methylPREDNISolone SOD SUCCI 40 MG/ML 1 ML VIAL IV SCH ×2 (07:46→16:46)
[2017-11-29] MEDS: FORMOTEROL FUMARATE 20 MCG/2 ML NEBU INHALATION SCH ×2 (08:47→20:12)
[2017-11-29] MEDS: ALBUTEROL NEBULIZED 2.5 MG/3 ML INHALATION SCH ×4 (08:47→20:12)
[2017-11-29] MEDS: BUDESONIDE 1 MG/2 ML NEBU INHALATION SCH ×2 (08:47→20:12)
[2017-11-29 09:07] LABS: Basophils % (A) 0 %; Eosinophils % (A) 0 %; HCT 41.6 % (34.0-46.0); HGB 13.3 gm/dL (11.4-16.0); Lymphocytes # (A) 1.3 k/uL (1.0-4.8); Lymphocytes % (A) 8 %; MCH 29.9 pg (25.0-35.0); MCV 93.6 fL (80.0-100.0); Mean Platelet Volume 6.4; Monocytes # (A) 0.7 k/uL (0-1.0); Monocytes % (A) 4 %; Neutrophils % (A) 86 %; Platelet Count 310 k/uL (150-450); RBC 4.44 m/uL (3.80-5.40); RDW 14.1 % (11.5-15.5); WBC 15.1 k/uL (3.8-10.6)
[2017-11-29 09:22] LABS: Anion Gap 9 mmol/L; Blood Urea Nitrogen 18 mg/dL (7-17); Carbon Dioxide 27 mmol/L (22-30); Chloride 104 mmol/L (98-107); Glucose 115 mg/dL (74-99); Potassium 4.1 mmol/L (3.5-5.1); Sodium 140 mmol/L (137-145)
--- NOTE | 2017-11-29 09:27 | P.PN ---
Subjective Progress Note Date: 11/29/17 Principal diagnosis: Acute asthma exacerbation, tracheobronchitis, history of ophthalmic histoplasmosis, chronic persistent severe asthma 11/29/2017, patient seen yuval reexamined during the rounds clinically slightly better able to get up and move to washroom but does get short of breath taking more than 4 TO 5 steps, oxygenation however is stable still have significant audible wheezing, 11/28/2017, patient seen yuval examined during the rounds clinically doing better but still get short of breath on activity and exertion care plan discussed with the primary service as patient is still tight and symptomatic have difficulty in ambulating we'll keep her in the hospital and likely will need to stay over the weekend 11/27/2017, patient seen yuval examined during the rounds, cough is mostly dry and nonproductive but severity has improved, she is a getting breathing treatments along with steroids does noted some improvement, but is still get short of breath on activity and exertion 11/26/2017, patient seen yuval examined during the rounds clinically doing slightly better still have significant wheezing cuff congestion but severity slightly improved compared to prior exam, I reviewed the computed tomography scan finding with the patient at length no evidence of infiltrate and/or pneumonia were seen 42-year-old female who was seen evaluated examined on third floor this patient presented into the emergency department with over a week history of increased cuff congestion and shortness of breath she has becoming more short of breath so that her nebulizer treatment as well as Symbicort was not working with those problem she was seen evaluated examined in the emergency room has been admitted into the hospital she does have cough congestion able to produce some sputum which is thick tenacious and dark yellow in color patient has a history of chronic persistent severe asthma since 3 years old however she denies any recent admission into the hospital for acute asthma exacerbation of complication of asthma. She has a multiple admission however back in s, she used to see an die cleaner has been on shots, with a last received more than a year ago. She denies any recent intubation and or hospital admission for asthma exacerbation in last several years. 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, patient even though was born in [place] but raised in [facility], she has a multiple chickens around house along with 2 rabbits a dog Objective - Vital Signs Vital signs: Vital Signs Temp 98.7 F 11/29/17 07:00 Pulse 93 11/29/17 09:13 Resp 16 11/29/17 07:00 BP 148/77 11/29/17 07:00 Pulse Ox 91 L 11/29/17 08:48 Intake & Output 11/28/17 11/29/17 11/29/17 18:59 06:59 18:59 Other: Voiding Method Toilet # Voids 3 3 # Bowel Movements 1 - Exam Constitutional General appearance: average body habitus, cooperative, disheveled, mild distress , no acute distress, thin - EENT Eyes: EOMI, PERRLA, normal appearance ENT: normal oropharynx Ears: bilateral: normal - Neck Neck: normal ROM Carotids: bilateral: upstroke normal, bruit absent Thyroid: bilateral: normal size - Respiratory Respiratory: bilateral: rhonchi, wheezing, prolonged expiration, significantly improved compared to prior exam - Cardiovascular Heart sounds: normal: S1, S2 - Gastrointestinal General gastrointestinal: normal bowel sounds, soft - Neurologic Neurologic: CNII-XII intact - Musculoskeletal Musculoskeletal: gait normal, generalized weakness, strength equal bilaterally - Psychiatric Psychiatric: A&O x's 3, appropriate affect, intact judgment & insight - Labs CBC & Chem 7: 11/29/17 08:18 11/29/17 08:18 Labs: Abnormal Lab Results - Last 24 Hours (Table) 11/28/17 11/28/17 11/28/17 Range/Units 11:18 17:07 20:34 WBC (3.8-10.6) k/uL Neutrophils # (1.3-7.7) k/uL BUN (7-17) mg/dL Glucose (74-99) mg/dL POC Glucose (mg/dL) 115 H 123 H 156 H (75-99) mg/dL 11/29/17 11/29/17 11/29/17 Range/Units 07:13 08:18 08:18 WBC 15.1 H (3.8-10.6) k/uL Neutrophils # 13.0 H (1.3-7.7) k/uL BUN 18 H (7-17) mg/dL Glucose 115 H (74-99) mg/dL POC Glucose (mg/dL) 125 H (75-99) mg/dL Microbiology - Last 24 Hours (Table) 11/24/17 17:27 Blood Culture - Preliminary Blood No Growth after 96 hours Assessment and Plan Assessment: Acute asthma exacerbation History of chronic persistent severe asthma History of histoplasma exposure History of intraocular histoplasmosis ADHD Mood disorder depression Plan: Continue bronchodilator in the form of albuterol via nebulizer IV steroids Oral antibiotics with doxycycline 100 mg by mouth 2 times a day Follow-up on Labs for ALLERGIC asthma, still pending Deep breathing exercise incentive spirometry Further evaluation of lung and outpatient basis, discussed with primary service given that patient is still very tight and symptomatic will continue current course of therapy and follow clinical course closely not ready for discharge Time with Patient: Greater than 30
[2017-11-29 11:24] LABS: Glucose,Whole Blood 117 mg/dL (75-99)
--- NOTE | 2017-11-29 16:12 | P.PN ---
Subjective Patient is admitted for status asthmaticus and acute asthma exacerbation and the patient has significant improvement but the case to have significant short of breath although there is fairly good air entry into bilateral lung tenorio. Pulmonology is recommending one more day of IV steroids. Objective - Vital Signs Vital signs: Vital Signs Temp 98.0 F 11/29/17 15:00 Pulse 90 11/29/17 16:03 Resp 16 11/29/17 15:00 BP 122/75 11/29/17 15:00 Pulse Ox 91 L 11/29/17 15:00 Intake & Output 11/28/17 11/29/17 11/29/17 18:59 06:59 18:59 Other: Voiding Method Toilet # Voids 3 3 2 # Bowel Movements 1 0 - Exam PHYSICAL EXAMINATION: GENERAL: The patient is alert and oriented x3, not in any acute distress. Well developed, well nourished. HEENT: Pupils are round and equally reacting to light. EOMI. No scleral icterus. No conjunctival pallor. Normocephalic, atraumatic. No pharyngeal erythema. No thyromegaly. CARDIOVASCULAR: S1 and S2 present. No murmurs, rubs, or gallops. PULMONARY: Chest is clear to auscultation, no wheezing or crackles. ABDOMEN: Soft, nontender, nondistended, normoactive bowel sounds. No palpable organomegaly. MUSCULOSKELETAL: No joint swelling or deformity. EXTREMITIES: No cyanosis, clubbing, or pedal edema. NEUROLOGICAL: Gross neurological examination did not reveal any focal deficits. SKIN: No rashes. - Labs CBC & Chem 7: 11/29/17 08:18 11/29/17 08:18 Labs: Abnormal Lab Results - Last 24 Hours (Table) 11/28/17 11/28/17 11/29/17 Range/Units 17:07 20:34 07:13 WBC (3.8-10.6) k/uL Neutrophils # (1.3-7.7) k/uL BUN (7-17) mg/dL Glucose (74-99) mg/dL POC Glucose (mg/dL) 123 H 156 H 125 H (75-99) mg/dL 11/29/17 11/29/17 11/29/17 Range/Units 08:18 08:18 11:22 WBC 15.1 H (3.8-10.6) k/uL Neutrophils # 13.0 H (1.3-7.7) k/uL BUN 18 H (7-17) mg/dL Glucose 115 H (74-99) mg/dL POC Glucose (mg/dL) 117 H (75-99) mg/dL Microbiology - Last 24 Hours (Table) 11/24/17 17:27 Blood Culture - Preliminary Blood No Growth after 96 hours Assessment and Plan Plan: -Acute exacerbation of moderate persistent asthma status asthmaticus, continue with IV steroids inhalational treatments possibility of discharge tomorrow next and-history of histoplasmosis in the past -Treated bronchitis antibiotics will be continued as recommended by pulmonology Hypertension deficit hyperactive disorder -Hypoglycemia due to systemic steroids will treat with the sliding scale insulin for steroids.
[2017-11-29 17:13] LABS: Glucose,Whole Blood 123 mg/dL (75-99)
[2017-11-29] MEDS: SODIUM CHLORIDE 0.9% 1,000 ML IV SCH (21:45)
[2017-11-30] MEDS: ALPRAZolam 0.25 MG TAB PO PRN (00:24)
[2017-11-30] MEDS: methylPREDNISolone SOD SUCCI 40 MG/ML 1 ML VIAL IV SCH ×2 (00:24→09:30)
[2017-11-30 06:34] VITALS: BP 100/65; TEMP 98.2
[2017-11-30] MEDS: DOXYCYCLINE MONOHYDRATE 100 MG CAPSULE PO SCH (06:42)
[2017-11-30] MEDS: ALBUTEROL NEBULIZED 2.5 MG/3 ML INHALATION SCH ×3 (08:21→16:08)
[2017-11-30] MEDS: BUDESONIDE 1 MG/2 ML NEBU INHALATION SCH (08:22)
[2017-11-30] MEDS: FORMOTEROL FUMARATE 20 MCG/2 ML NEBU INHALATION SCH (08:23)
[2017-11-30 08:33] LABS: Anion Gap 9 mmol/L; Blood Urea Nitrogen 18 mg/dL (7-17); Calcium 8.7 mg/dL (8.4-10.2); Carbon Dioxide 26 mmol/L (22-30); Chloride 105 mmol/L (98-107); Glucose 110 mg/dL (74-99); Potassium 4.7 mmol/L (3.5-5.1); Sodium 140 mmol/L (137-145)
--- NOTE | 2017-11-30 09:22 | P.PN ---
Subjective Progress Note Date: 11/30/17 Principal diagnosis: Acute asthma exacerbation, tracheobronchitis, history of ophthalmic histoplasmosis, chronic persistent severe asthma 11/30/2017, patient seen evmarcelo reexamined during the rounds clinically patient is doing much better now in terms of breathing decreased cough and congestion able to get up and move around prescription has been provided for a tapering steroids oral antibiotics patient does have a functioning nebulizer machine at home prescription provided for Pulmicort, patient does have albuterol nebulizer medicine at home 11/29/2017, patient seen eval reexamined during the rounds clinically slightly better able to get up and move to washroom but does get short of breath taking more than 4 TO 5 steps, oxygenation however is stable still have significant audible wheezing, 11/28/2017, patient seen evmarcelo examined during the rounds clinically doing better but still get short of breath on activity and exertion care plan discussed with the primary service as patient is still tight and symptomatic have difficulty in ambulating we'll keep her in the hospital and likely will need to stay over the weekend 11/27/2017, patient seen evmarcelo examined during the rounds, cough is mostly dry and nonproductive but severity has improved, she is a getting breathing treatments along with steroids does noted some improvement, but is still get short of breath on activity and exertion 11/26/2017, patient seen evmarcelo examined during the rounds clinically doing slightly better still have significant wheezing cuff congestion but severity slightly improved compared to prior exam, I reviewed the computed tomography scan finding with the patient at length no evidence of infiltrate and/or pneumonia were seen 42-year-old female who was seen evaluated examined on third floor this patient presented into the emergency department with over a week history of increased cuff congestion and shortness of breath she has becoming more short of breath so that her nebulizer treatment as well as Symbicort was not working with those problem she was seen evaluated examined in the emergency room has been admitted into the hospital she does have cough congestion able to produce some sputum which is thick tenacious and dark yellow in color patient has a history of chronic persistent severe asthma since 3 years old however she denies any recent admission into the hospital for acute asthma exacerbation of complication of asthma. She has a multiple admission however back in , she used to see an photographer assistant has been on shots, with a last received more than a year ago. She denies any recent intubation and or hospital admission for asthma exacerbation in last several years. 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, patient even though was born in [place] but raised in [facility] area, she has a multiple chickens around house along with 2 rabbits a dog Objective - Vital Signs Vital signs: Vital Signs Temp 98.2 F 11/30/17 06:32 Pulse 84 11/30/17 08:31 Resp 24 11/30/17 06:32 BP 100/65 11/30/17 06:32 Pulse Ox 92 L 11/30/17 06:32 Intake & Output 11/29/17 11/30/17 11/30/17 18:59 06:59 18:59 Other: Voiding Method Toilet # Voids 2 2 # Bowel Movements 0 - Exam Constitutional General appearance: average body habitus, cooperative, disheveled, mild distress , no acute distress, thin - EENT Eyes: EOMI, PERRLA, normal appearance ENT: normal oropharynx Ears: bilateral: normal - Neck Neck: normal ROM Carotids: bilateral: upstroke normal, bruit absent Thyroid: bilateral: normal size - Respiratory Respiratory: bilateral: rhonchi, wheezing, prolonged expiration, significantly improved compared to prior exam - Cardiovascular Heart sounds: normal: S1, S2 - Gastrointestinal General gastrointestinal: normal bowel sounds, soft - Neurologic Neurologic: CNII-XII intact - Musculoskeletal Musculoskeletal: gait normal, generalized weakness, strength equal bilaterally - Psychiatric Psychiatric: A&O x's 3, appropriate affect, intact judgment & insight - Labs CBC & Chem 7: 11/29/17 08:18 11/30/17 07:48 Labs: Abnormal Lab Results - Last 24 Hours (Table) 11/29/17 11/29/17 11/29/17 Range/Units 08:18 08:18 11:22 WBC 15.1 H (3.8-10.6) k/uL Neutrophils # 13.0 H (1.3-7.7) k/uL BUN 18 H (7-17) mg/dL Glucose 115 H (74-99) mg/dL POC Glucose (mg/dL) 117 H (75-99) mg/dL 11/29/17 11/30/17 Range/Units 17:11 07:48 WBC (3.8-10.6) k/uL Neutrophils # (1.3-7.7) k/uL BUN 18 H (7-17) mg/dL Glucose 110 H (74-99) mg/dL POC Glucose (mg/dL) 123 H (75-99) mg/dL Microbiology - Last 24 Hours (Table) 11/24/17 17:27 Blood Culture - Preliminary Blood No Growth after 120 hours Assessment and Plan Assessment: Acute asthma exacerbation History of chronic persistent severe asthma History of histoplasma exposure History of intraocular histoplasmosis ADHD Mood disorder depression Plan: Continue bronchodilator in the form of albuterol via nebulizer and Pulmicort Oral prednisone Oral antibiotics with doxycycline 100 mg by mouth 2 times a day Follow-up on Labs for ALLERGIC asthma, still pending Deep breathing exercise incentive spirometry Further evaluation of lung and outpatient basis, discussed with primary service given that patient is still very tight and symptomatic will continue current course of therapy and follow clinical course closely, patient is ready for discharge from pulmonary standpoint with follow-up on outpatient setting Time with Patient: Greater than 30
[2017-11-30] MEDS: Dextroamphetamine/Amphetamine [Adderall Xr] PO SCH (09:26)
[2017-11-30] MEDS: ENOXAPARIN 40 MG/0.4 ML SYRINGE SQ SCH (09:29)
[2017-11-30] MEDS: CITALOPRAM HYDROBROMIDE 20 MG TAB PO SCH (09:30)
--- NOTE | 2017-11-30 14:16 | P.DS ---
Providers Date of admission: 11/24/17 19:55 Attending physician: Junior Alamo Consults: 11/24/17 19:52 Consult Physician Routine Consulting Provider: Facundo Loomis Consult Reason/Comments: Status asthmaticus Do you want consulting provider notified?: Yes Primary care physician: Thee Jimenes [facility] Course: Patient is admitted for status asthmaticus and acute asthma exacerbation and the patient has significant improvement but the case to have significant short of breath although there is fairly good air entry into bilateral lung tenorio. Pulmonology is recommending one more day of IV steroids. 11/30/2017 Patient is clinically doing well fairly good air entry into bilateral lung tenorio still coughing quite a bit being discharged today. PHYSICAL EXAMINATION: GENERAL: The patient is alert and oriented x3, not in any acute distress. Well developed, well nourished. HEENT: Pupils are round and equally reacting to light. EOMI. No scleral icterus. No conjunctival pallor. Normocephalic, atraumatic. No pharyngeal erythema. No thyromegaly. CARDIOVASCULAR: S1 and S2 present. No murmurs, rubs, or gallops. PULMONARY: Chest is clear to auscultation, no wheezing or crackles. ABDOMEN: Soft, nontender, nondistended, normoactive bowel sounds. No palpable organomegaly. MUSCULOSKELETAL: No joint swelling or deformity. EXTREMITIES: No cyanosis, clubbing, or pedal edema. NEUROLOGICAL: Gross neurological examination did not reveal any focal deficits. SKIN: No rashes. Assessment and Plan Plan: -Acute exacerbation of moderate persistent asthma status asthmaticus, she and is being discharged on weaning dose of steroid -tracheo- bronchitis antibiotics will be continued as recommended by pulmonology Hypertension deficit hyperactive disorder -Hypoglycemia due to systemic steroids will treat with the sliding scale insulin for steroids. Patient Condition at Discharge: Serious Plan - Discharge Summary Discharge Rx Participant: Yes New Discharge Prescriptions: No Action Budesonide/Formoterol Fumarate [Symbicort 160-4.5 Mcg Inhaler] 2 puff INHALATION RT-DAILY Albuterol Inhaler [Ventolin Hfa Inhaler] 1 - 2 puff INHALATION RT-Q6H PRN PRN Reason: Shortness Of Breath Dextroamphetamine/Amphetamine [Adderall Xr] 20 mg PO QAM Citalopram Hydrobromide [CeleXA] 20 mg PO DAILY Cetirizine HCl [Zyrtec] 10 mg PO DAILY Discharge Medication List Albuterol Inhaler [Ventolin Hfa Inhaler] 1 - 2 puff INHALATION RT-Q6H PRN [History] Budesonide/Formoterol Fumarate [Symbicort 160-4.5 Mcg Inhaler] 2 puff INHALATION RT-DAILY 11/24/17 [History] Cetirizine HCl [Zyrtec] 10 mg PO DAILY 11/24/17 [History] Citalopram Hydrobromide [CeleXA] 20 mg PO DAILY 11/24/17 [History] Dextroamphetamine/Amphetamine [Adderall Xr] 20 mg PO QAM 11/24/17 [History] Follow up Appointment(s)/Referral(s): Thee Rodarte MD [Primary Care Provider] - 3 Days Facundo Loomis MD [STAFF PHYSICIAN] - 1 Week Patient Instructions/Handouts: Asthma (DC) Activity/Diet/Wound Care/Special Instructions: discharge with written scripts for prednisone taper, pulmicort , and doxycycline. Discharge Disposition: HOME SELF-CARE
[2017-11-30 16:09] VITALS: RESP 16
[2017-11-30 16:17] VITALS: PULSE 90
[2017-11-30 23:03] LABS: Alternaria Alternata IgG < 2.0 mcg/mL (< 13.6); Aspergillus fumigatus IgG Not detected (Not detected); Aureobasidium pullulans IgG 4.5 mcg/mL (< 13.6); Cladosporium herbarium IgG 15.8 mcg/mL (< 14.7); Phoma ssp. IgG 3.6 mcg/mL (< 6.6); Saccaharomospora viridis Not detected (Not detected); Saccaharopoly. rectivirgula Not detected (Not detected)
== END 2017-11-30 16:29 | disposition home or self-care (01) | DRG 203 ==
LOC: EC 16:54 → 4MS4W 19:55
PROVIDERS: ADMIT Hospitalist; ATTEND Hospitalist
DX: J45.41 Moderate persistent asthma with (acute) exacerbation (principal); J45.42 Moderate persistent asthma with status asthmaticus; F90.9 Attention-deficit hyperactivity disorder, unspecified type; T38.0X5A Adverse effect of glucocorticoids and synthetic analogues, initial encounter; R73.9 Hyperglycemia, unspecified; F41.9 Anxiety disorder, unspecified; F32.9 Major depressive disorder, single episode, unspecified; M54.5 Low back pain; G89.29 Other chronic pain; Z87.09 Personal history of other diseases of the respiratory system; Z79.51 Long term (current) use of inhaled steroids; Z79.899 Other long term (current) drug therapy; Z88.8 Allergy status to other drugs, medicaments and biological substances; B39.9 Histoplasmosis, unspecified
CPT/HCPCS: 36415; 71275; 80048; 80053; 82550; 82553; 83605; 84484; 85025; 85610; 85730; 86001; 86606; 86609; 87040; 93005; 94640; 94760; 96361; 96365; 96375; 99285

== ENCOUNTER → 2018-01-19 | Outpatient (CLI) | payer BC ==
[2018-01-19 11:17] LABS: HCT 39.9 % (34.0-46.0); HGB 13.1 gm/dL (11.4-16.0); MCH 30.1 pg (25.0-35.0); MCHC 32.8 g/dL (31.0-37.0); MCV 91.9 fL (80.0-100.0); Mean Platelet Volume 6.4; Platelet Count 284 k/uL (150-450); RBC 4.35 m/uL (3.80-5.40); RDW 13.7 % (11.5-15.5); WBC 6.8 k/uL (3.8-10.6)
[2018-01-19 11:44] LABS: Total Eosinophil Count 353 #EOS/uL (150-300)
[2018-01-19 13:04] LABS: Erythrocyte Sedimentation Rate 23 mm/hr (0-20)
[2018-01-19 14:37] LABS: Band Neutrophils % 1 %; Lymphocytes # (M) 1.97 k/uL (1.0-4.8); Neutrophils % (M) 64 %; Nucleated Red Blood Cells 0 /100 WBC (0-0); Total Cells Counted 100
[2018-01-19 14:38] LABS: Anisocytosis (M) Present; Poikilocytosis (M) Present
== END ==
LOC: LABWHC1 10:00
PROVIDERS: ATTEND Internal Medicine
DX: J45.909 Unspecified asthma, uncomplicated (principal)
CPT/HCPCS: 36415; 82164; 82785; 85008; 85027; 85652

== ENCOUNTER → 2018-07-13 | Outpatient (CLI) | payer BC ==
--- NOTE | 2018-07-13 10:14 | CT ---
EXAMINATION TYPE: CT chest wo con DATE OF EXAM: 07/13/2018 COMPARISON: 11/24/2017 and 03/27/2016 HISTORY: Solitary pulmonary nodule with history of histoplasmosis CT DLP: 272.7 mGycm. Automated Exposure Control for Dose Reduction was Utilized. TECHNIQUE: CT scan of the thorax is performed without IV contrast. FINDINGS: LUNGS: There is an unchanged 3 mm solid pulmonary nodule on series 4 image 20 in comparison to exam o f 03/27/2016. There is also unchanged appearance of a lingular pulmonary nodule along the interlobar f issure on series 4 image 32 retrospectively. This is solid and measures 2 mm. Similarly there is unch anged size of a 2 mm left basilar pulmonary nodule on image 34. No focal consolidation. There is no p leural effusion or pneumothorax seen. The tracheobronchial tree is patent. MEDIASTINUM: Lack of IV contrast is noted to limit evaluation for mediastinal and especially hilar ad enopathy. There are no definitive greater than 1 cm hilar or mediastinal lymph nodes. No cardiomega ly or pericardial effusion is seen. OTHER: No additional significant abnormality is seen. IMPRESSION: Unchanged size of punctate solid left pulmonary nodules in comparison to the exam of 2016 . These are highly favored to be benign given the stability, particularly with the provided history o f prior histoplasmosis. No new pulmonary nodule is seen. No pulmonary mass.
== END ==
LOC: RADCTMAIN 08:15
PROVIDERS: ATTEND Family Medicine
DX: R91.8 Other nonspecific abnormal finding of lung field (principal)
CPT/HCPCS: 71250

== ENCOUNTER → 2019-09-13 | Outpatient (CLI) | payer BC ==
--- NOTE | 2019-09-14 10:05 | MM ---
Reason for exam: screening (asymptomatic). Last mammogram was performed 3 years and 6 months ago. History: Patient had first child at age 30. Took hormonal contraceptives for 15 years. Physical Findings: A clinical breast exam by your physician is recommended on an annual basis and results should be correlated with mammographic findings. MG 3D Screening Mammo W/Cad Bilateral CC and MLO view(s) were taken. Prior study comparison: March 25, 2016, bilateral MG screening mammo w CAD. June 02, 2014, bilateral MG screening mammo w CAD. The breast tissue is heterogeneously dense. This may lower the sensitivity of mammography. Focal asymmetry 8-9 o'clock right breast appears to persist on 3D images. These results were verbally communicated with the patient and result sheet given to the patient on 09/13/19. ASSESSMENT: Incomplete: need additional imaging evaluation, BI-RAD 0 RECOMMENDATION: Special view mammogram of the right breast. (3D) If lesion persists on supplemental views, image directed ultrasound is recommended. [facility] will attempt to contact patient to return for supplemental views and ultrasound if indicated.
== END | disposition home or self-care (01) ==
LOC: RADMAMWWP 15:44
PROVIDERS: ATTEND Family Medicine
DX: Z12.31 Encounter for screening mammogram for malignant neoplasm of breast (principal)
CPT/HCPCS: 77063; 77067

== ENCOUNTER → 2019-09-28 | Outpatient (CLI) | payer BC ==
--- NOTE | 2019-09-28 14:38 | MM ---
Reason for exam: additional evaluation requested from abnormal screening. Last mammogram was performed less than 1 month ago. History: Patient had first child at age 30. Took hormonal contraceptives for 15 years. Physical Findings: Nurse did not find any significant physical abnormalities on exam. MG 3D Work Up W/Cad RT Spot compression CC, spot compression MLO, and LM view(s) were taken of the right breast. Prior study comparison: September 13, 2019, bilateral MG 3d screening mammo w/cad. March 25, 2016, bilateral MG screening mammo w CAD. The breast tissue is heterogeneously dense. This may lower the sensitivity of mammography. No significant new findings when compared with previous films. These results were verbally communicated with the patient and result sheet given to the patient on 09/28/19. ASSESSMENT: Benign, BI-RAD 2 RECOMMENDATION: Return to routine screening mammogram schedule for both breasts.
== END ==
LOC: RADMAMWWP 13:47
PROVIDERS: ATTEND Family Medicine
DX: R92.8 Other abnormal and inconclusive findings on diagnostic imaging of breast (principal)
CPT/HCPCS: 77061; 77065

== ENCOUNTER → 2020-01-03 | Outpatient (CLI) | payer BC ==
[2020-01-03 14:01] LABS: Basophils # (A) 0.1 k/uL (0-0.2); Basophils % (A) 2 %; Eosinophils # (A) 0.2 k/uL (0-0.7); Eosinophils % (A) 3 %; HCT 41.1 % (34.0-46.0); HGB 13.2 gm/dL (11.4-16.0); Lymphocytes # (A) 1.6 k/uL (1.0-4.8); Lymphocytes % (A) 26 %; MCH 30.1 pg (25.0-35.0); MCHC 32.2 g/dL (31.0-37.0); MCV 93.6 fL (80.0-100.0); Mean Platelet Volume 6.3; Monocytes # (A) 0.3 k/uL (0-1.0); Monocytes % (A) 5 %; Neutrophils % (A) 63 %; Platelet Count 305 k/uL (150-450); RBC 4.39 m/uL (3.80-5.40); RDW 13.7 % (11.5-15.5); WBC 6.4 k/uL (3.8-10.6)
[2020-01-03 14:18] LABS: Total Eosinophil Count 192 #EOS/uL (150-300)
== END | disposition home or self-care (01) ==
LOC: LABWHC1 13:10
PROVIDERS: ATTEND Internal Medicine
DX: J45.30 Mild persistent asthma, uncomplicated (principal)
CPT/HCPCS: 36415; 85008; 85025

== ENCOUNTER 2020-07-26 13:56 | Emergency (ER) | payer BC ==
[2020-07-26 14:07] VITALS: BP 145/89; PULSE 87; RESP 20; TEMP 98.9
--- NOTE | 2020-07-26 14:37 | ED ---
ENT HPI - General Chief complaint: ENT Stated complaint: Fluid in neck,Sent by pcp Time Seen by Provider: 07/26/20 14:30 Source: patient, RN notes reviewed Mode of arrival: ambulatory Limitations: no limitations - History of Present Illness Initial comments: Patient is a 45-year-old female that presents to the emergency department complaining of throat pain and difficulty swallowing and bilaterally swollen lymph nodes. She notes that she had an ultrasound done at [facility] which showed fluid collection pushing on her trachea. She notes that she did get tested for strep throat and was negative. She also reported that she was positive for Covid back in May but has since recovered. She stated that symptoms began approximately Friday night and have continued to be constant throughout the day. She no she can swallow her own saliva but with difficulty as it feels like a hard marble going down. She denied any difficulty breathing or shortness of breath. She denied any chest pain headache nausea vomiting diarrhea constipation fever fatigue. - Related Data Home Medications Medication Instructions Recorded Confirmed Budesonide/Formoterol Fumarate 2 puff INHALATION RT-BID 11/24/17 07/26/20 [Symbicort 160-4.5 Mcg Inhaler] Albuterol Sulfate [Proair Hfa] 1 - 2 puff INHALATION RT-Q4H PRN 07/26/2007/26 Montelukast [Singulair] 10 mg PO HS 07/26/20 07/26/20 Omalizumab [Xolair] 150 mg SQ Q14D 07/26/20 07/26/20 Omeprazole Magnesium [PriLOSEC OTC] 20 mg PO BID 07/26/20 07/26/20 Allergies Allergy/AdvReac Type Severity Reaction Status Date / Time broccoli Allergy Anaphylaxis Verified 07/26/20 16:51 legumes Allergy Allergy Verified 07/26/20 16:51 Testing lettuce Allergy Allergy Verified 07/26/20 16:51 Testing onion Allergy Allergy Verified 07/26/20 16:51 Testing raspberry Allergy Allergy Verified 07/26/20 16:51 Testing rice Allergy Anaphylaxis Verified 07/26/20 16:51 soy Allergy Anaphylaxis Verified 07/26/20 16:51 strawberry Allergy Allergy Verified 07/26/20 16:51 Testing tomato Allergy Allergy Verified 07/26/20 16:51 Testing theophylline [From Rob-Dur] AdvReac Nausea & Verified 07/26/20 16:51 Vomiting PEPPER CORN Allergy Anaphylaxis Uncoded 07/26/20 16:51 Review of Systems ROS Statement: Those systems with pertinent positive or pertinent negative responses have been documented in the HPI. ROS Other: All systems not noted in ROS Statement are negative. Past Medical History Past Medical History: Asthma Additional Past Medical History / Comment(s): Histoplasmosis, pituitary adenoma, ocular histoplasmosis, right ankle fracture (no surgery), chronic back pain. Reports being "almost " r/t asthma in (vented and hospitalized). History of Any Multi-Drug Resistant Organisms: None Reported Past Surgical History: No Surgical Hx Reported Past Psychological History: ADD/ADHD, Anxiety, Depression Smoking Status: Never smoker Past Alcohol Use History: Occasional Past Drug Use History: None Reported General Exam Limitations: no limitations General appearance: alert, in no apparent distress Head exam: Present: atraumatic, normocephalic, normal inspection Eye exam: Present: normal appearance, PERRL, EOMI. Absent: scleral icterus, conjunctival injection, periorbital swelling ENT exam: Present: normal exam, normal oropharynx, mucous membranes moist Neck exam: Present: normal inspection, lymphadenopathy (Bilaterally submandibular). Absent: tenderness, meningismus Expanded Neck exam: Absent: anterior neck swelling, tracheal deviation Respiratory exam: Present: normal lung sounds bilaterally. Absent: respiratory distress, wheezes, rales, rhonchi, stridor Cardiovascular Exam: Present: regular rate, normal rhythm, normal heart sounds. Absent: systolic murmur, diastolic murmur, rubs, gallop, clicks GI/Abdominal exam: Present: soft, normal bowel sounds. Absent: distended, tenderness, guarding, rebound, rigid Extremities exam: Present: normal inspection, full ROM, normal capillary refill. Absent: tenderness, pedal edema, joint swelling, calf tenderness Neurological exam: Present: alert, oriented X3, CN II-XII intact Psychiatric exam: Present: normal affect, normal mood Skin exam: Present: warm, dry, intact, normal color. Absent: rash Course Vital Signs 07/26/20 14:02 Temperature 98.9 F Pulse Rate 87 Respiratory 20 Rate Blood Pressure 145/89 O2 Sat by Pulse 97 Oximetry Medical Decision Making - Medical Decision Making 45-year-old female complaining of sore throat with swollen lymph nodes status post ultrasound showing fluid pushing on trachea. Labs, CT of the soft tissue of the neck ordered. Heterophile and Test negative. 125 mg of methylprednisolone ordered CT shows some lymphadenopathy but no fluid collection. Case discussed with Dr. Santos, patient discharge home with follow-up to primary care. - Lab Data Result diagrams: 07/26/20 14:42 07/26/20 14:42 Lab Results 07/26/20 07/26/20 07/26/20 Range/Units 14:22 14:42 14:42 WBC 11.1 H (3.8-10.6) k/uL RBC 4.41 (3.80-5.40) m/uL Hgb 13.6 (11.4-16.0) gm/dL Hct 39.4 (34.0-46.0) % MCV 89.3 (80.0-100.0) fL MCH 30.9 (25.0-35.0) pg MCHC 34.6 (31.0-37.0) g/dL RDW 13.7 (11.5-15.5) % Plt Count 323 (150-450) k/uL MPV 6.4 Neutrophils % 76 % Lymphocytes % 13 % Monocytes % 4 % Eosinophils % 4 % Basophils % 1 % Neutrophils # 8.5 H (1.3-7.7) k/uL Lymphocytes # 1.5 (1.0-4.8) k/uL Monocytes # 0.5 (0-1.0) k/uL Eosinophils # 0.5 (0-0.7) k/uL Basophils # 0.1 (0-0.2) k/uL Sodium 139 (137-145) mmol/L Potassium 4.0 (3.5-5.1) mmol/L Chloride 105 (98-107) mmol/L Carbon Dioxide 27 (22-30) mmol/L Anion Gap 7 mmol/L BUN 10 (7-17) mg/dL Creatinine 0.55 (0.52-1.04) mg/dL Est GFR (CKD-EPI)AfAm >90 (>60 ml/min/1.73 sqM) Est GFR (CKD-EPI)NonAf >90 (>60 ml/min/1.73 sqM) Glucose 90 (74-99) mg/dL Calcium 9.4 (8.4-10.2) mg/dL Total Bilirubin 1.5 H (0.2-1.3) mg/dL AST 35 (14-36) U/L ALT 32 (4-34) U/L Alkaline Phosphatase 95 (38-126) U/L Total Protein 7.3 (6.3-8.2) g/dL Albumin 4.4 (3.5-5.0) g/dL Heterophile Antibody Negative (Negative) Group A Strep Rapid (Negative) 07/26/20 Range/Units 14:42 WBC (3.8-10.6) k/uL RBC (3.80-5.40) m/uL Hgb (11.4-16.0) gm/dL Hct (34.0-46.0) % MCV (80.0-100.0) fL MCH (25.0-35.0) pg MCHC (31.0-37.0) g/dL RDW (11.5-15.5) % Plt Count (150-450) k/uL MPV Neutrophils % % Lymphocytes % % Monocytes % % Eosinophils % % Basophils % % Neutrophils # (1.3-7.7) k/uL Lymphocytes # (1.0-4.8) k/uL Monocytes # (0-1.0) k/uL Eosinophils # (0-0.7) k/uL Basophils # (0-0.2) k/uL Sodium (137-145) mmol/L Potassium (3.5-5.1) mmol/L Chloride (98-107) mmol/L Carbon Dioxide (22-30) mmol/L Anion Gap mmol/L BUN (7-17) mg/dL Creatinine (0.52-1.04) mg/dL Est GFR (CKD-EPI)AfAm (>60 ml/min/1.73 sqM) Est GFR (CKD-EPI)NonAf (>60 ml/min/1.73 sqM) Glucose (74-99) mg/dL Calcium (8.4-10.2) mg/dL Total Bilirubin (0.2-1.3) mg/dL AST (14-36) U/L ALT (4-34) U/L Alkaline Phosphatase (38-126) U/L Total Protein (6.3-8.2) g/dL Albumin (3.5-5.0) g/dL Heterophile Antibody (Negative) Group A Strep Rapid Negative (Negative) - Radiology Data Radiology results: report reviewed, image reviewed CT of the soft tissue neck: Some prominence of lymph nodes in the right jugulodigastric region with scattered small lymphadenopathy present bilaterally. No suspicious fluid accumulations adjacent to the subglottic airway. Disposition Clinical Impression: Lymphadenopathy of head and neck Disposition: HOME SELF-CARE Condition: Stable Instructions (If sedation given, give patient instructions): Lymphadenopathy (ED) Additional Instructions: Please return to the Emergency Department if symptoms worsen or any other concerns. Follow-up with primary care in 3-5 days for swollen lymph nodes. Can take [id number] Tylenol Motrin for any fever or pain control. Is patient prescribed a controlled substance at d/c from ED?: No Referrals: Thee Rodarte MD [Primary Care Provider] - 1-2 days Time of Disposition: 17:41
[2020-07-26 14:59] LABS: Basophils # (A) 0.1 k/uL (0-0.2); Basophils % (A) 1 %; Eosinophils # (A) 0.5 k/uL (0-0.7); Eosinophils % (A) 4 %; HCT 39.4 % (34.0-46.0); HGB 13.6 gm/dL (11.4-16.0); Lymphocytes # (A) 1.5 k/uL (1.0-4.8); Lymphocytes % (A) 13 %; MCH 30.9 pg (25.0-35.0); MCHC 34.6 g/dL (31.0-37.0); MCV 89.3 fL (80.0-100.0); Mean Platelet Volume 6.4; Monocytes # (A) 0.5 k/uL (0-1.0); Monocytes % (A) 4 %; Neutrophils # (A) 8.5 k/uL (1.3-7.7); Neutrophils % (A) 76 %; Platelet Count 323 k/uL (150-450); RBC 4.41 m/uL (3.80-5.40); RDW 13.7 % (11.5-15.5); WBC 11.1 k/uL (3.8-10.6)
[2020-07-26 15:09] LABS: ALT 32 U/L (4-34); AST 35 U/L (14-36); African American GFR (CKD) >90 (>60 ml/min/1.73 sqM); Albumin 4.4 g/dL (3.5-5.0); Alkaline Phosphatase 95 U/L (38-126); Anion Gap 7 mmol/L; Blood Urea Nitrogen 10 mg/dL (7-17); Calcium 9.4 mg/dL (8.4-10.2); Carbon Dioxide 27 mmol/L (22-30); Chloride 105 mmol/L (98-107); Glucose 90 mg/dL (74-99); Non-African American GFR(CKD) >90 (>60 ml/min/1.73 sqM); Sodium 139 mmol/L (137-145); Total Bilirubin 1.5 mg/dL (0.2-1.3); Total Protein 7.3 g/dL (6.3-8.2)
--- NOTE | 2020-07-26 16:02 | CT ---
EXAMINATION TYPE: CT soft tissue neck wo con DATE OF EXAM: 07/26/2020 COMPARISON: None HISTORY: PAIN CT DLP: 324.2 mGycm CONTRAST: Patient injected with 0 mL of Isovue 300. TECHNIQUE: Axial images at 3 mm thick sections. Reconstructed images in the coronal plane and sagitt al plane are reviewed. FINDINGS: Limited CT sections are obtained the lung apices. The lung apices appear clear. CT neck: Beam hardening artifact from bilateral piercings are present. Some dental amalgam scatter ar tifact is present. The torus tubarius and fossa of Rosenmuller are normal. Airworthiness Inspector spaces are normal. Paranasal sin uses and mastoid air cells are clear. Parotid glands appear normal and symmetrical. Submandibular glands, are normal. Parapharyngeal spac es are normal. There appear to be 0.9 to 1.0 cm nodes within the left jugulodigastric region. . Additional scattered small lymph nodes are present bilaterally. The hypopharynx appears within normal limits. Vocal cord level appear symmetrical. Thyroid as visualized is normal. Osseous structures are normal. There is a soft tissue thickening along the spine at the edge of the f [id number]. This was present previously on 07/13/2018 appear stable. IMPRESSIONS: 1. Some prominence of lymph nodes in the right jugulodigastric region with scattered small lymphadeno gail present bilaterally. 2. No suspicious fluid accumulations adjacent to the subglottic airway.
[2020-07-26] MEDS ORDERED: methylPREDNISolone SOD SUCCI 125 MG/2 ML VIAL IV STA (17:12)
== END 2020-07-26 17:51 | disposition home or self-care (01) ==
LOC: EC 13:56
DX: L04.0 Acute lymphadenitis of face, head and neck (principal); F32.9 Major depressive disorder, single episode, unspecified
CPT/HCPCS: 36415; 80053; 85025; 86308; 87081; 87430; 70490; 99284; 96374; J2930

== ENCOUNTER → 2022-03-18 | Outpatient (CLI) | payer BC ==
--- NOTE | 2022-03-19 08:39 | MM ---
Reason for Exam: Screening (asymptomatic). Last mammogram was performed 2 year(s) and 7 month(s) ago. Patient History: Menarche at age 11. First Full-Term at age 30. Late child-bearing (after 28). Patient used Hormonal Contraceptives for 15 years. Last menstrual period: 02/18/2022 Risk Values: Vilma 5 year model risk: 1.3%. NCI Lifetime model risk: 12.3%. Prior Study Comparison: 03/25/2016 Bilateral Screening Mammogram, [facility]. 09/13/2019 Bilateral Screening Mammogram, [facility]. 09/28/2019 Right Diagnostic Mammogram, [facility]. Tissue Density: The breast tissue is heterogeneously dense. This may lower the sensitivity of mammography. Findings: Analyzed By CAD. There is no suspicious group of microcalcifications or new suspicious mass in either breast. Overall Assessment: Negative, BI-RAD 1 Management: Screening Mammogram of both breasts in 1 year. A clinical breast exam by your physician is recommended on an annual basis and results should be correlated with mammographic findings. [facility] will attempt to contact patient to return for supplemental views and ultrasound if indicated. Electronically signed and approved by: Toby Hope DO
== END | disposition home or self-care (01) ==
LOC: RADMAMWWP 11:45
PROVIDERS: ATTEND Family Medicine
DX: Z12.31 Encounter for screening mammogram for malignant neoplasm of breast (principal)
CPT/HCPCS: 77063; 77067

== ENCOUNTER → 2023-04-14 | Outpatient (CLI) | payer BC ==
--- NOTE | 2023-04-15 08:24 | MM ---
Reason for Exam: Screening (asymptomatic). Last screening mammogram was performed 12 month(s) ago. Patient History: Menarche at age 11. First Full-Term at age 30. Late child-bearing (after 30). Patient used Hormonal Contraceptives for 15 years. Last menstrual period: 04/13/2023 Risk Values: Vilma 5 year model risk: 1.3%. NCI Lifetime model risk: 12.1%. Prior Study Comparison: 09/13/2019 Bilateral Screening Mammogram, [facility]. 09/28/2019 Right Diagnostic Mammogram, [facility]. 03/18/2022 Bilateral MG 3D screening mammo w/cad, [facility]. Tissue Density: The breast tissue is heterogeneously dense. This may lower the sensitivity of mammography. Findings: Analyzed By CAD. There is no suspicious group of microcalcifications or new suspicious mass in either breast. Overall Assessment: Benign, BI-RAD 2 Management: Screening Mammogram of both breasts in 1 year. . Patient should continue monthly self-breast exams. A clinical breast exam by your physician is recommended on an annual basis. This exam should not preclude additional follow-up of suspicious palpable abnormalities. Note on Vilma scores and lifetime risk: 1. A Vilma score greater than 3% is considered moderate risk. If this is the case, consider specialist referral to assess eligibility for a risk reducing agent. 2. If overall lifetime risk for the development of breast cancer is 20% or higher, the patient may qualify for future screening with alternating mammogram and breast MRI. Electronically signed and approved by: Ventura Bradley M.D. Radiologis
== END | disposition home or self-care (01) ==
LOC: RADMAMWWP 14:39
PROVIDERS: ATTEND Family Medicine
DX: Z12.31 Encounter for screening mammogram for malignant neoplasm of breast (principal)
CPT/HCPCS: 77063; 77067

== ENCOUNTER → 2024-04-19 | Outpatient (CLI) | payer BC ==
--- NOTE | 2024-04-19 14:33 | MM ---
Reason for Exam: Screening (asymptomatic). Last mammogram was performed 1 year(s) and 1 month(s) ago. Patient History: Menarche at age 11. First Full-Term at age 30. Late child-bearing (after 28). Patient has history of breast feeding. Patient used Hormonal Contraceptives for 15 years. Last menstrual period: 04/18/2024 Risk Values: Vilma 5 year model risk: 1.4%. NCI Lifetime model risk: 12.0%. Prior Study Comparison: 09/28/2019 Right Diagnostic Mammogram, [facility]. 03/18/2022 Bilateral MG 3D screening mammo w/cad, [facility]. 04/14/2023 Bilateral MG 3D screening mammo w/cad, [facility]. Tissue Density: The breasts are heterogeneously dense, which may obscure small masses. Findings: Analyzed By CAD. There are several small round masses redemonstrated particularly throughout the right breast. There is no suspicious group of microcalcifications or new or enlarging suspicious mass in either breast. Overall Assessment: Benign, BI-RAD 2 Management: Screening Mammogram of both breasts in 1 year. . Some advise bilateral ultrasound annual surveillance in patients with background dense tissue. Patient should continue monthly self-breast exams. A clinical breast exam by your physician is recommended on an annual basis. This exam should not preclude additional follow-up of suspicious palpable abnormalities. Note on Vilma scores and lifetime risk: 1. A Vilma score greater than 3% is considered moderate risk. If this is the case, consider specialist referral to assess eligibility for a risk reducing agent. 2. If overall lifetime risk for the development of breast cancer is 20% or higher, the patient may qualify for future screening with alternating mammogram and breast MRI. [facility], , 04/19/2024 2:30 PM. Electronically signed and approved by: Hair Chacko M.D.
== END | disposition home or self-care (01) ==
LOC: RADMAMWWP 13:30
PROVIDERS: ATTEND Family Medicine
DX: Z12.31 Encounter for screening mammogram for malignant neoplasm of breast (principal); R92.333 Mammographic heterogeneous density, bilateral breasts; Z92.0 Personal history of contraception
CPT/HCPCS: 77063; 77067